=== PATIENT | female | born 1930 | race Caucasian/White ===

== ENCOUNTER 2019-03-06 11:08 | Inpatient (IN) | payer MEDICARE ==
[~2019-03-06] VITALS: Ht 162.6 cm; Wt 64.0 kg
[2019-03-06] MEDS ORDERED: IV NORMAL SALINE 1000ML BAG 1,000 ML IV SCH (11:26)
[2019-03-06] MEDS ORDERED: IPRATRPIUM/ALBUTEROL 0.5/2.5MG 3 ML NEBU. NEB ONE (11:30)
--- NOTE | 2019-03-06 11:44 | PHYS DOC ---
Past Medical History Past Medical History: GERD, High Cholesterol, Hypertension Additional Past Medical Histor: THYROID DZ Additional Past Surgical Histo: CATARACTS BILATERAL EYES - PERSISTEN DOUBLE VISION AFTER SX Alcohol Use: None Drug Use: None Adult General Chief Complaint Chief Complaint: SYNCOPE HPI HPI Patient is a 88 year old female who brought in by EMS with complaining of syncopal episode. Patient states she was sitting on the breakfast table and had a syncopal episode without loss of consciousness. Patient states she had loss of consciousness for a few seconds without seizure activity or fall. Patient denies chest pain, focal neuro deficit, headache before and after her syncope. Patient denies history of syncope, recent dehydration, urinary symptoms, diarrhea and constipation. Patient states she has had productive cough and shortness of breath for the last 3 days with subjective fever that gradually getting worse. Review of Systems Review of Systems Constitutional: Reports subjective fever Eyes: Denies change in visual acuity, redness, or eye pain [] HENT: Denies nasal congestion or sore throat [] Respiratory: Reports cough and shortness of breath Cardiovascular: No additional information not addressed in HPI [] GI: Denies abdominal pain, nausea, vomiting, bloody stools or diarrhea [] : Denies dysuria or hematuria [] Musculoskeletal: Denies back pain or joint pain [] Integument: Denies rash or skin lesions [] Neurologic: Denies headache, focal weakness or sensory changes [] Endocrine: Denies polyuria or polydipsia [] All other systems were reviewed and found to be within normal limits, except as documented in this note. Current Medications Current Medications Current Medications Medications (Trade) Dose Ordered Sig/Bhaskar Start Time Stop Time Status Last Admin Dose Admin Albuterol/ Ipratropium (Duoneb) 3 ml 1X ONCE 03/06/19 11:30 03/06/19 11:31 DC 03/06/19 11:51 3 ML Sodium Chloride 1,000 ml @ 1,000 mls/hr Q1H 03/06/19 11:26 03/06/19 12:25 DC 03/06/19 11:21 1,000 MLS/HR Allergies Allergies Allergies Coded Allergies Type Severity Reaction Last Updated Verified Sulfa (Sulfonamide Antibiotics) Allergy Unknown 03/06/19 Yes Physical Exam Physical Exam Constitutional: Well developed, well nourished, mild distress, non-toxic appearance. [] HENT: Normocephalic, atraumatic. Eyes: PERRLA, EOMI, conjunctiva normal, no discharge. [] Neck: Normal range of motion, no tenderness, supple, no stridor. [] Cardiovascular:Heart rate regular rhythm, no murmur [] Lungs & Thorax: Bilateral breath sounds clear to auscultation [] Abdomen: Bowel sounds normal, soft, no tenderness, no masses, no pulsatile masses. [] Skin: Warm, dry, no erythema, no rash. [] Back: No tenderness, no CVA tenderness. [] Extremities: No tenderness, no cyanosis, no clubbing, ROM intact, no edema. [] Neurologic: Alert and oriented X 3, normal motor function, normal sensory function, no focal deficits noted. [] Psychologic: Affect normal, judgement normal, mood normal. [] Current Patient Data Vital Signs Vital Signs Date Time Temp Pulse Resp B/P (MAP) Pulse Ox O2 Delivery O2 Flow Rate FiO2 03/06/19 11:51 93 Room Air 03/06/19 11:21 97.9 97 18 96/54 (68) 97.9 Lab Values Laboratory Tests Test 03/06/19 11:29 03/06/19 11:55 White Blood Count 7.4 x10^3/uL (4.0-11.0) Red Blood Count 4.41 x10^6/uL (3.50-5.40) Hemoglobin 13.3 g/dL (12.0-15.5) Hematocrit 39.2 % (36.0-47.0) Mean Corpuscular Volume 89 fL (79-100) Mean Corpuscular Hemoglobin 30 pg (25-35) Mean Corpuscular Hemoglobin Concent 34 g/dL (31-37) Red Cell Distribution Width 14.1 % (11.5-14.5) Platelet Count 180 x10^3/uL (140-400) Neutrophils (%) (Auto) 77 % (31-73) H Lymphocytes (%) (Auto) 12 % (24-48) L Monocytes (%) (Auto) 10 % (0-9) H Eosinophils (%) (Auto) 1 % (0-3) Basophils (%) (Auto) 0 % (0-3) Neutrophils # (Auto) 5.7 x10^3uL (1.8-7.7) Lymphocytes # (Auto) 0.9 x10^3/uL (1.0-4.8) L Monocytes # (Auto) 0.7 x10^3/uL (0.0-1.1) Eosinophils # (Auto) 0.1 x10^3/uL (0.0-0.7) Basophils # (Auto) 0.0 x10^3/uL (0.0-0.2) Sodium Level 136 mmol/L (136-145) Potassium Level 3.6 mmol/L (3.5-5.1) Chloride Level 98 mmol/L (98-107) Carbon Dioxide Level 24 mmol/L (21-32) Anion Gap 14 (6-14) Blood Urea Nitrogen 22 mg/dL (7-20) H Creatinine 0.9 mg/dL (0.6-1.0) Estimated GFR (Cockcroft-Gault) 59.2 BUN/Creatinine Ratio 24 (6-20) H Glucose Level 172 mg/dL (70-99) H Lactic Acid Level 2.3 mmol/L (0.4-2.0) H Calcium Level 8.8 mg/dL (8.5-10.1) Magnesium Level 1.8 mg/dL (1.8-2.4) Total Bilirubin 0.7 mg/dL (0.2-1.0) Aspartate Amino Transferase (AST) 28 U/L (15-37) Alanine Aminotransferase (ALT) 23 U/L (14-59) Alkaline Phosphatase 59 U/L (46-116) Creatine Kinase 477 U/L (26-192) H Troponin I Quantitative < 0.017 ng/mL (0.000-0.055) CB-Lcc-L-Type Natriuretic Peptide 1070 pg/mL (0-449) H Total Protein 6.4 g/dL (6.4-8.2) Albumin 3.3 g/dL (3.4-5.0) L Albumin/Globulin Ratio 1.1 (1.0-1.7) Urine Collection Type Unknown Urine Color Yellow Urine Clarity Clear Urine pH 5.5 Urine Specific [place] 1.015 Urine Protein Negative mg/dL (NEG-TRACE) Urine Glucose (UA) Negative mg/dL (NEG) Urine Ketones (Stick) Negative mg/dL (NEG) Urine Blood Small (NEG) Urine Nitrite Negative (NEG) Urine Bilirubin Negative (NEG) Urine Urobilinogen Dipstick 1.0 mg/dL (0.2 mg/dL) Urine Leukocyte Esterase Small (NEG) Urine RBC 6-10 /HPF (0-2) Urine WBC 1-4 /HPF (0-4) Urine Squamous Epithelial Cells Mod /LPF Urine Bacteria Few /HPF (0-FEW) Urine Hyaline Casts Many /HPF Urine Mucus Mod /LPF Laboratory Tests 03/06/19 11:29 Laboratory Tests 03/06/19 11:29 EKG EKG EKG interpreted by me. EKG at 1118 showed normal sinus rhythm at rate of 94, low voltage QRS, normal MI and QT interval, no acute ST and T-wave abnormalities. Radiology/Procedures Radiology/Procedures [facility] [address] [place] [address] IMAGING REPORT Signed PATIENT: ERROL UNDERWOOD ACCOUNT: [id number] : 1930 LOCATION: ER AGE: 88 SEX: F EXAM STATUS: REG ER ORD. PHYSICIAN: RUBÉN WALSH MD REASON: syncope PROCEDURE: CT HEAD WO CONTRAST CT HEAD WO CONTRAST History: Syncope Comparison: None. Technique: Noncontrast CT imaging was performed of the head. Exposure: One or more of the following individualized dose reduction techniques were utilized for this examination: 1. Automated exposure control 2. Adjustment of the mA and/or kV according to patient size 3. Use of iterative reconstruction technique. Findings: No acute extra-axial or parenchymal hemorrhage is identified. There is no significant intra-axial mass effect, midline shift, or extra-axial fluid collection. The burnett-white differentiation of the major vascular territories is preserved. There is some scattered ill-defined low-density of the supratentorial parenchyma bilaterally greatest of the parietal lobes. 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 The ventricles, sulci, and cisterns are within normal limits in size and configuration. The mastoid air cells and the visualized paranasal sinuses are aerated. No acute calvarial abnormality is identified. There is atherosclerotic calcification carotid siphons bilaterally. Impression: 1. There is no evidence of acute intracranial hemorrhage. 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 If there is suspicion for acute or evolving ischemia, CT or MRI follow-up could be beneficial. Electronically signed by: Solange Hill MD (03/06/2019 1:04 PM) [id number] DICTATED and SIGNED BY: SOLANGE HILL MD DATE: 03/06/19 1304 [facility] [address] [place] [address] IMAGING REPORT Signed PATIENT: ERROL UNDERWOOD ACCOUNT: [id number] : 1930 LOCATION: ER AGE: 88 SEX: F EXAM STATUS: PRE ER ORD. PHYSICIAN: RUBÉN WALSH MD REASON: syncope. IN RESTROOM@11:34 PROCEDURE: PORTABLE CHEST 1V Portable chest, 03/06/2019: HISTORY: Syncope No previous chest radiographs are available at this time for comparison purposes. The patient is rotated to the right. The heart size is normal. There is a retrocardiac mass containing gas compatible with a hiatal hernia. The pulmonary vascularity is normal. There is minimal linear scarring or atelectasis in the left base. No pulmonary consolidation is seen. There is no evidence of pleural fluid. IMPRESSION: 1. Probable moderate sized hiatal hernia. 2. Minimal left basilar linear scarring or atelectasis.. Electronically signed by: Mick Ribera MD (03/06/2019 12:19 PM) [facility] DICTATED and SIGNED BY: MICK RIBERA MD DATE: 03/06/19 1219 Course & Med Decision Making Course & Med Decision Making Pertinent Labs and Imaging studies reviewed. (See chart for details) Evaluation of patient in ER showed 88-year-old female patient brought in by EMS because of syncope. Patient had blood pressure of 80s at the scene that increased to 90s at arrival to ER after 300 ml IV fluids given by EMS. Patient had elevation of lactic acid without leukocytosis. Chest x-ray did not show infiltration. Plan to admit patient with diagnosis of syncope and bronchitis and sepsis.Patient requiring admission for further evaluation and treatment. Discussed with Dr. Aguero who is in agreement with admission. Discussed findings and plan with patient and family, who acknowledge understanding and agreement. Dragon Disclaimer Dragon Disclaimer This electronic medical record was generated, in whole or in part, using a voice recognition dictation system. Departure Departure Impression: Primary Impression: Sepsis Additional Impressions: Syncope Acute bronchitis Dehydration Hiatal hernia Disposition: 09 ADMITTED INPATIENT (at 1415) Admitting Physician: ALOK (Dr. Aguero accepted admission at 1415) Condition: IMPROVED Problem Qualifiers Primary Impression: Sepsis Sepsis type: sepsis due to unspecified organism Qualified Codes: A41.9 - Sepsis, unspecified organism Additional Impressions: Syncope Syncope type: unspecified Qualified Codes: R55 - Syncope and collapse Acute bronchitis Bronchitis organism: unspecified organism Qualified Codes: J20.9 - Acute bronchitis, unspecified RUBÉN WALSH MD March 06, 2019 11:44
[2019-03-06 11:49] LABS: BASO % 0 % (0-3); EOS # 0.1 x10^3/uL (0.0-0.7); EOS % 1 % (0-3); HEMATOCRIT 39.2 % (36.0-47.0); HEMOGLOBIN 13.3 g/dL (12.0-15.5); LYMPH # 0.9 x10^3/uL (1.0-4.8); LYMPH % 12 % (24-48); MEAN CORPUSCULAR HEMOGLOBIN 30 pg (25-35); MEAN CORPUSCULAR HGB CONC 34 g/dL (31-37); MEAN CORPUSCULAR VOLUME 89 fL (79-100); MONO # 0.7 x10^3/uL (0.0-1.1); MONO % 10 % (0-9); NEUT # 5.7 x10^3uL (1.8-7.7); NEUT % 77 % (31-73); PLATELET COUNT 180 x10^3/uL (140-400); RED BLOOD COUNT 4.41 x10^6/uL (3.50-5.40); RED CELL DISTRIBUTION WIDTH 14.1 % (11.5-14.5); WHITE BLOOD COUNT 7.4 x10^3/uL (4.0-11.0)
[2019-03-06 12:03] LABS: BILIRUBIN,URINE NEGATIVE (NEG); CLARITY,URINE CLEAR; COLOR,URINE YELLOW; NITRITE,URINE NEGATIVE (NEG); PH,URINE 5.5; PROTEIN,URINE NEGATIVE (NEG-TRACE)
[2019-03-06 12:21] LABS: HYALINE CASTS, URINE MANY /HPF; SQUAMOUS EPITHELIAL CELL,UR MOD /LPF
[2019-03-06 12:22] LABS: BACTERIA,URINE FEW /HPF (0-FEW)
--- NOTE | 2019-03-06 12:22 | RAD ---
Portable chest, 03/06/2019: HISTORY: Syncope No previous chest radiographs are available at this time for comparison purposes. The patient is rotated to the right. The heart size is normal. There is a retrocardiac mass containing gas compatible with a hiatal hernia. The pulmonary vascularity is normal. There is minimal linear scarring or atelectasis in the left base. No pulmonary consolidation is seen. There is no evidence of pleural fluid. IMPRESSION: 1. Probable moderate sized hiatal hernia. 2. Minimal left basilar linear scarring or atelectasis.. Electronically signed by: Mick Ribera MD (03/06/2019 12:19 PM) [facility]
--- NOTE | 2019-03-06 13:07 | RAD ---
CT HEAD WO CONTRAST History: Syncope Comparison: None. Technique: Noncontrast CT imaging was performed of the head. Exposure: One or more of the following individualized dose reduction techniques were utilized for this examination: 1. Automated exposure control 2. Adjustment of the mA and/or kV according to patient size 3. Use of iterative reconstruction technique. Findings: No acute extra-axial or parenchymal hemorrhage is identified. There is no significant intra-axial mass effect, midline shift, or extra-axial fluid collection. The burnett-white differentiation of the major vascular territories is preserved. There is some scattered ill-defined low-density of the supratentorial parenchyma bilaterally greatest of the parietal lobes. 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 The ventricles, sulci, and cisterns are within normal limits in size and configuration. The mastoid air cells and the visualized paranasal sinuses are aerated. No acute calvarial abnormality is identified. There is atherosclerotic calcification carotid siphons bilaterally. Impression: 1. There is no evidence of acute intracranial hemorrhage. 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 If there is suspicion for acute or evolving ischemia, CT or MRI follow-up could be beneficial. Electronically signed by: Gagan De Souza MD (03/06/2019 1:04 PM) [id number]
[2019-03-06] MEDS ORDERED: AZITHRMYCN 500MG IVPB FOR OMNI 250 ML IV ONE (13:30)
[2019-03-06] MEDS ORDERED: cefTRIAXone IV Push 1 GM VIAL. IVP ONE (13:30)
[2019-03-06 13:51] LABS: CALCIUM 8.8 mg/dL (8.5-10.1); CREATININE 0.9 mg/dL (0.6-1.0); GFR 59.2; POTASSIUM 3.6 mmol/L (3.5-5.1)
[2019-03-06 13:57] LABS: ALBUMIN 3.3 g/dL (3.4-5.0); ALBUMIN/GLOBULIN RATIO 1.1 (1.0-1.7); MAGNESIUM 1.8 mg/dL (1.8-2.4); TOTAL BILIRUBIN 0.7 mg/dL (0.2-1.0); TOTAL PROTEIN 6.4 g/dL (6.4-8.2)
[2019-03-06] MEDS ORDERED: LORazepam 0.5 MG TABLET PO PRN (14:30)
[2019-03-06] MEDS ORDERED: ACETAMINOPHEN 325 MG TABLET. PO PRN (14:30)
[2019-03-06] MEDS ORDERED: ONDANSETRON PF 4 MG/2 ML VIAL. IV PRN (14:30)
[2019-03-06] MEDS ORDERED: guaiFENesin ORAL 200 MG/10 ML LIQUID. PO PRN (14:30)
[2019-03-06] MEDS ORDERED: DOCUSATE SODIUM 100 MG CAPSULE. PO PRN (14:30)
[2019-03-06] MEDS ORDERED: ALBUTEROL SULFATE 2.5 MG/3 ML NEBU. NEB PRN (14:30)
--- NOTE | 2019-03-06 14:54 | EKG ---
[facility] [address] [place] [address] Test Date: 2019-03-06 Test Time: 11:18:08 Pat Name: ERROL UNDERWOOD Department: Room: Gender: F Customer Experience Retail Clerk: : 1930 Requested By: RUBÉN WALSH Order Number: [id number] Reading MD: Measurements Intervals [place] Rate: 94 P: 33 AL: 146 QRS: 40 QRSD: 72 T: -27 QT: 356 QTc: 451 Interpretive Statements SINUS RHYTHM LOW LIMB LEAD VOLTAGE T ABNORMALITY IN INFERIOR LEADS ABNORMAL ECG RI6.01 Unconfirmed report No previous ECG available for comparison
--- NOTE | 2019-03-06 15:34 | PDOC1 ---
History and Physical Date of Admission Date of Admission 03/06/2019 Identification/Chief Complaint Chief Complaint I passed out Problems: (1) Syncope (2) Atelectasis Source Source: Caregiver, Chart review, Patient History of Present Illness History of Present Illness Patient is a an 88-year-old female who was in her usual state of health sitting on the table today when she had a coughing spell and subsequently the patient relates losing consciousness. Patient or lives at home with her and recently has not been "feeling well". When asked to elaborate more patient has generalized malaise congestion and he'll she also refers a sensation of being quite cool he will when she knows that the outdoors are quite warm. The patient has not quantified her temperature at home she denies fever or chills Patient's was prescribed antibiotics last week since he had similar symptoms. The patient nevertheless has a long-standing history of GERD and she takes a PPI on a regular basis. Despite his therapy the patient still complains of epigastric burning sensation. The patient denies changes in the swallowing process. The patient denies black tarry stools. At the time of my evaluation the patient is laying on the stretcher in no acute distress. She denies orthopnea no paroxysmal nocturnal dyspnea was reported no orthostatic blood pressure has been recorded at the time my evaluation. Plan of care has been explained detail to the patient and the daughter who is at bedside. Patient denies chest pain palpitations no slurred speech no dysphagia or odynophagia no constipation or abdominal pain was reported no edema in the peripheral extremities. Will be admitted for further evaluation of her syncopal episode. I have discussed results of her laboratory data and her x-ray ER hsitory Patient is a 88 year old female who brought in by EMS with complaining of sy ncopal episode. Patient states she was sitting on the breakfast table and had a syncopal episode without loss of consciousness. Patient states she had loss of consciousness for a few seconds without seizure activity or fall. Patient denies chest pain, focal neuro deficit, headache before and after her syncope. Patient denies history of syncope, recent dehydration, urinary symptoms, diarrhea and constipation. Patient states she has had productive cough and shortness of breath for the last 3 days with subjective fever that gradually getting worse. Past Medical History Cardiovascular: HTN Current Problem List Problem List Problems Medical Problems: (1) Acute bronchitis Status: Acute (2) Dehydration Status: Acute (3) Hiatal hernia Status: Acute (4) Sepsis Status: Acute (5) Syncope Status: Acute Current Medications Current Medications Current Medications Medications (Trade) Dose Ordered Sig/Bhaskar Start Time Stop Time Status Last Admin Dose Admin Acetaminophen (Tylenol) 650 mg PRN Q4HRS PRN 03/06/19 14:30 Albuterol Sulfate (Ventolin Neb Soln) 2.5 mg PRN Q4HRS PRN 03/06/19 14:30 Albuterol/ Ipratropium (Duoneb) 3 ml 1X ONCE 03/06/19 11:30 03/06/19 11:31 DC 03/06/19 11:51 3 ML Azithromycin 250 ml @ 250 mls/hr 1X ONCE 03/06/19 13:30 03/06/19 14:29 DC 03/06/19 13:35 250 MLS/HR Ceftriaxone Sodium (Rocephin) 1 gm 1X ONCE 03/06/19 13:30 03/06/19 13:31 DC 03/06/19 13:35 1 GM Docusate Sodium (Colace) 100 mg PRN BID PRN 03/06/19 14:30 Guaifenesin (Robitussin) 200 mg PRN Q4HRS PRN 03/06/19 14:30 Lorazepam (Ativan) 0.5 mg PRN Q4HRS PRN 03/06/19 14:30 Ondansetron HCl (Zofran) 4 mg PRN Q4HRS PRN 03/06/19 14:30 Sodium Chloride 1,000 ml @ 125 mls/hr Q8H 03/06/19 14:24 03/07/19 14:23 Zolpidem Tartrate (Ambien) 5 mg PRN QHS PRN 03/06/19 14:30 Allergies Allergies Allergies Coded Allergies Type Severity Reaction Last Updated Verified Sulfa (Sulfonamide Antibiotics) Allergy Unknown 03/06/19 Yes ROS Review of System CONSTITUTIONAL: No fever or chills EYES: No recent changes SKIN: No rash or itching CARDIOVASCULAR: No chest pain, syncope, palpitations, or edema RESPIRATORY: No SOB or cough GASTROINTESTINAL: No nausea, vomiting or abdominal pain NEUROLOGICAL: No headaches or weakness ENDOCRINE: No cold or heat intolerance GENITOURINARY: No urgency or frequency of urination MUSCULOSKELETAL: No back pain or joint pain LYMPHATICS: No enlarged lymph nodes PSYCHIATRIC: No anxiety or depression Physical Exam Physical Exam GEN.: No apparent distress. Alert and oriented. HEENT: Head is normocephalic, atraumatic NECK: Supple. LUNGS: Clear to auscultation. HEART: RRR, S1, S2 present. Peripheral pulses intact ABDOMEN: Soft, nontender. Positive bowel sounds. EXTREMITIES: Without any cyanosis. NEUROLOGIC: Normal speech, normal tone PSYCHIATRIC: Normal affect, normal mood. SKIN: No ulcerations Vitals Vitals Vital Signs Date Time Temp Pulse Resp B/P (MAP) Pulse Ox O2 Delivery O2 Flow Rate FiO2 03/06/19 11:51 93 Room Air 03/06/19 11:21 97.9 97 18 96/54 (68) 97.9 Labs Labs Laboratory Tests Test 03/06/19 11:29 03/06/19 11:55 White Blood Count 7.4 x10^3/uL (4.0-11.0) Red Blood Count 4.41 x10^6/uL (3.50-5.40) Hemoglobin 13.3 g/dL (12.0-15.5) Hematocrit 39.2 % (36.0-47.0) Mean Corpuscular Volume 89 fL (79-100) Mean Corpuscular Hemoglobin 30 pg (25-35) Mean Corpuscular Hemoglobin Concent 34 g/dL (31-37) Red Cell Distribution Width 14.1 % (11.5-14.5) Platelet Count 180 x10^3/uL (140-400) Neutrophils (%) (Auto) 77 % (31-73) Lymphocytes (%) (Auto) 12 % (24-48) Monocytes (%) (Auto) 10 % (0-9) Eosinophils (%) (Auto) 1 % (0-3) Basophils (%) (Auto) 0 % (0-3) Neutrophils # (Auto) 5.7 x10^3uL (1.8-7.7) Lymphocytes # (Auto) 0.9 x10^3/uL (1.0-4.8) Monocytes # (Auto) 0.7 x10^3/uL (0.0-1.1) Eosinophils # (Auto) 0.1 x10^3/uL (0.0-0.7) Basophils # (Auto) 0.0 x10^3/uL (0.0-0.2) Sodium Level 136 mmol/L (136-145) Potassium Level 3.6 mmol/L (3.5-5.1) Chloride Level 98 mmol/L (98-107) Carbon Dioxide Level 24 mmol/L (21-32) Anion Gap 14 (6-14) Blood Urea Nitrogen 22 mg/dL (7-20) Creatinine 0.9 mg/dL (0.6-1.0) Estimated GFR (Cockcroft-Gault) 59.2 BUN/Creatinine Ratio 24 (6-20) Glucose Level 172 mg/dL (70-99) Lactic Acid Level 2.3 mmol/L (0.4-2.0) Calcium Level 8.8 mg/dL (8.5-10.1) Magnesium Level 1.8 mg/dL (1.8-2.4) Total Bilirubin 0.7 mg/dL (0.2-1.0) Aspartate Amino Transf (AST/SGOT) 28 U/L (15-37) Alanine Aminotransferase (ALT/SGPT) 23 U/L (14-59) Alkaline Phosphatase 59 U/L (46-116) Creatine Kinase 477 U/L (26-192) Troponin I Quantitative < 0.017 ng/mL (0.000-0.055) GB-Ylh-N-Type Natriuretic Peptide 1070 pg/mL (0-449) Total Protein 6.4 g/dL (6.4-8.2) Albumin 3.3 g/dL (3.4-5.0) Albumin/Globulin Ratio 1.1 (1.0-1.7) Urine Collection Type Unknown Urine Color Yellow Urine Clarity Clear Urine pH 5.5 Urine Specific [place] 1.015 Urine Protein Negative mg/dL (NEG-TRACE) Urine Glucose (UA) Negative mg/dL (NEG) Urine Ketones (Stick) Negative mg/dL (NEG) Urine Blood Small (NEG) Urine Nitrite Negative (NEG) Urine Bilirubin Negative (NEG) Urine Urobilinogen Dipstick 1.0 mg/dL (0.2 mg/dL) Urine Leukocyte Esterase Small (NEG) Urine RBC 6-10 /HPF (0-2) Urine WBC 1-4 /HPF (0-4) Urine Squamous Epithelial Cells Mod /LPF Urine Bacteria Few /HPF (0-FEW) Urine Hyaline Casts Many /HPF Urine Mucus Mod /LPF Laboratory Tests Test 03/06/19 11:29 03/06/19 11:55 White Blood Count 7.4 x10^3/uL (4.0-11.0) Red Blood Count 4.41 x10^6/uL (3.50-5.40) Hemoglobin 13.3 g/dL (12.0-15.5) Hematocrit 39.2 % (36.0-47.0) Mean Corpuscular Volume 89 fL (79-100) Mean Corpuscular Hemoglobin 30 pg (25-35) Mean Corpuscular Hemoglobin Concent 34 g/dL (31-37) Red Cell Distribution Width 14.1 % (11.5-14.5) Platelet Count 180 x10^3/uL (140-400) Neutrophils (%) (Auto) 77 % (31-73) Lymphocytes (%) (Auto) 12 % (24-48) Monocytes (%) (Auto) 10 % (0-9) Eosinophils (%) (Auto) 1 % (0-3) Basophils (%) (Auto) 0 % (0-3) Neutrophils # (Auto) 5.7 x10^3uL (1.8-7.7) Lymphocytes # (Auto) 0.9 x10^3/uL (1.0-4.8) Monocytes # (Auto) 0.7 x10^3/uL (0.0-1.1) Eosinophils # (Auto) 0.1 x10^3/uL (0.0-0.7) Basophils # (Auto) 0.0 x10^3/uL (0.0-0.2) Sodium Level 136 mmol/L (136-145) Potassium Level 3.6 mmol/L (3.5-5.1) Chloride Level 98 mmol/L (98-107) Carbon Dioxide Level 24 mmol/L (21-32) Anion Gap 14 (6-14) Blood Urea Nitrogen 22 mg/dL (7-20) Creatinine 0.9 mg/dL (0.6-1.0) Estimated GFR (Cockcroft-Gault) 59.2 BUN/Creatinine Ratio 24 (6-20) Glucose Level 172 mg/dL (70-99) Lactic Acid Level 2.3 mmol/L (0.4-2.0) Calcium Level 8.8 mg/dL (8.5-10.1) Magnesium Level 1.8 mg/dL (1.8-2.4) Total Bilirubin 0.7 mg/dL (0.2-1.0) Aspartate Amino Transf (AST/SGOT) 28 U/L (15-37) Alanine Aminotransferase (ALT/SGPT) 23 U/L (14-59) Alkaline Phosphatase 59 U/L (46-116) Creatine Kinase 477 U/L (26-192) Troponin I Quantitative < 0.017 ng/mL (0.000-0.055) NY-Yjm-V-Type Natriuretic Peptide 1070 pg/mL (0-449) Total Protein 6.4 g/dL (6.4-8.2) Albumin 3.3 g/dL (3.4-5.0) Albumin/Globulin Ratio 1.1 (1.0-1.7) Urine Collection Type Unknown Urine Color Yellow Urine Clarity Clear Urine pH 5.5 Urine Specific [place] 1.015 Urine Protein Negative mg/dL (NEG-TRACE) Urine Glucose (UA) Negative mg/dL (NEG) Urine Ketones (Stick) Negative mg/dL (NEG) Urine Blood Small (NEG) Urine Nitrite Negative (NEG) Urine Bilirubin Negative (NEG) Urine Urobilinogen Dipstick 1.0 mg/dL (0.2 mg/dL) Urine Leukocyte Esterase Small (NEG) Urine RBC 6-10 /HPF (0-2) Urine WBC 1-4 /HPF (0-4) Urine Squamous Epithelial Cells Mod /LPF Urine Bacteria Few /HPF (0-FEW) Urine Hyaline Casts Many /HPF Urine Mucus Mod /LPF VTE Prophylaxis Ordered VTE Prophylaxis Devices: Yes VTE Pharmacological Prophylaxi: No Assessment/Plan Assessment/Plan Syncopal episode, etiology undetermined may have been vasovagal vs orthostasis given history of poor oral intake over the last 48 hours History of GERD chronic cough which well may be a consequence of the above seasonal allergies advanced age moderate dehydration Elevated pro BNP Plan: fluid resuscitation check orthostatics consult cardiology resume home meds once available for review will do protonix for GERD further recommendations based on clincal course dvt prophylaxis: scd and teds Problem Qualifiers (1) Syncope: Syncope type: unspecified Qualified Codes: R55 - Syncope and collapse FALLON CLEMENTS MD March 06, 2019 15:34
[2019-03-06] MEDS: IV NORMAL SALINE 1000ML BAG 1,000 ML IV SCH ×2 (16:47→20:59)
[2019-03-06 19:10] VITALS: BP 114/63
[2019-03-06] MEDS: ZOLPIDEM 5 MG TABLET. PO PRN (23:10)
[2019-03-06 23:47] VITALS: BP 113/48
[2019-03-07 03:45] VITALS: BP 105/48
[2019-03-07] MEDS: IV NORMAL SALINE 1000ML BAG 1,000 ML IV SCH (05:51)
[2019-03-07 07:00] VITALS: BP 143/47
--- NOTE | 2019-03-07 08:30 | NUR ---
Pt stated she would have her bring her medications because she cannot remember the dosages. Patient also stated "I didn't know if we were allowed to do that." is going out with family this morning and should be able to bring them up this afternoon. Will continue to monitor. Addendum: 03/07/19 at 1052 by ROD JAMES RN Spoke with the pharmacist at [facility] in [place]. They are faxing over an updated medication list. Will continue to monitor.
--- NOTE | 2019-03-07 09:09 | PDOC ---
[employer] PROGRESS NOTE Chief Complaint Chief Complaint Syncopal episode, etiology undetermined may have been vasovagal vs orthostasis given history of poor oral intake over the last 48 hours History of GERD chronic cough which well may be a consequence of the above seasonal allergies advanced age moderate dehydration Elevated pro BNP History of Present Illness History of Present Illness Pt seen andexamined DW RN Pt seems to be coughing and aspirating at the bedside Vitals Vitals Vital Signs Date Time Temp Pulse Resp B/P (MAP) Pulse Ox O2 Delivery O2 Flow Rate FiO2 03/07/19 07:00 97.7 71 16 143/47 (79) 92 Room Air 97.7 Physical Exam General: Alert, Oriented X3, Cooperative Heart: Regular rate, Normal S1 Lungs: Other (R wheeze) Abdomen: Normal bowel sounds, Soft Extremities: No clubbing, No cyanosis Skin: No rashes, No breakdown Labs Labs: Laboratory Tests Test 03/06/19 11:29 03/06/19 11:55 03/06/19 18:30 White Blood Count 7.4 x10^3/uL (4.0-11.0) Red Blood Count 4.41 x10^6/uL (3.50-5.40) Hemoglobin 13.3 g/dL (12.0-15.5) Hematocrit 39.2 % (36.0-47.0) Mean Corpuscular Volume 89 fL (79-100) Mean Corpuscular Hemoglobin 30 pg (25-35) Mean Corpuscular Hemoglobin Concent 34 g/dL (31-37) Red Cell Distribution Width 14.1 % (11.5-14.5) Platelet Count 180 x10^3/uL (140-400) Neutrophils (%) (Auto) 77 % (31-73) Lymphocytes (%) (Auto) 12 % (24-48) Monocytes (%) (Auto) 10 % (0-9) Eosinophils (%) (Auto) 1 % (0-3) Basophils (%) (Auto) 0 % (0-3) Neutrophils # (Auto) 5.7 x10^3uL (1.8-7.7) Lymphocytes # (Auto) 0.9 x10^3/uL (1.0-4.8) Monocytes # (Auto) 0.7 x10^3/uL (0.0-1.1) Eosinophils # (Auto) 0.1 x10^3/uL (0.0-0.7) Basophils # (Auto) 0.0 x10^3/uL (0.0-0.2) Sodium Level 136 mmol/L (136-145) Potassium Level 3.6 mmol/L (3.5-5.1) Chloride Level 98 mmol/L (98-107) Carbon Dioxide Level 24 mmol/L (21-32) Anion Gap 14 (6-14) Blood Urea Nitrogen 22 mg/dL (7-20) Creatinine 0.9 mg/dL (0.6-1.0) Estimated GFR (Cockcroft-Gault) 59.2 BUN/Creatinine Ratio 24 (6-20) Glucose Level 172 mg/dL (70-99) Lactic Acid Level 2.3 mmol/L (0.4-2.0) 1.3 mmol/L (0.4-2.0) Calcium Level 8.8 mg/dL (8.5-10.1) Magnesium Level 1.8 mg/dL (1.8-2.4) Total Bilirubin 0.7 mg/dL (0.2-1.0) Aspartate Amino Transf (AST/SGOT) 28 U/L (15-37) Alanine Aminotransferase (ALT/SGPT) 23 U/L (14-59) Alkaline Phosphatase 59 U/L (46-116) Creatine Kinase 477 U/L (26-192) Troponin I Quantitative < 0.017 ng/mL (0.000-0.055) [id number]-Type Natriuretic Peptide 1070 pg/mL (0-449) Total Protein 6.4 g/dL (6.4-8.2) Albumin 3.3 g/dL (3.4-5.0) Albumin/Globulin Ratio 1.1 (1.0-1.7) Urine Collection Type Unknown Urine Color Yellow Urine Clarity Clear Urine pH 5.5 Urine Specific Causey 1.015 Urine Protein Negative mg/dL (NEG-TRACE) Urine Glucose (UA) Negative mg/dL (NEG) Urine Ketones (Stick) Negative mg/dL (NEG) Urine Blood Small (NEG) Urine Nitrite Negative (NEG) Urine Bilirubin Negative (NEG) Urine Urobilinogen Dipstick 1.0 mg/dL (0.2 mg/dL) Urine Leukocyte Esterase Small (NEG) Urine RBC 6-10 /HPF (0-2) Urine WBC 1-4 /HPF (0-4) Urine Squamous Epithelial Cells Mod /LPF Urine Bacteria Few /HPF (0-FEW) Urine Hyaline Casts Many /HPF Urine Mucus Mod /LPF Review of Systems Review of Systems co cough co weakness Assessment and Plan Assessmemt and Plan Problems Medical Problems: (1) Acute bronchitis Status: Acute (2) Dehydration Status: Acute (3) Hiatal hernia Status: Acute (4) Sepsis Status: ? Aspiration? Acute Syncopal episode, etiology undetermined may have been vasovagal vs orthostasis given history of poor oral intake over the last 48 hours History of GERD chronic cough which well may be a consequence of the above seasonal allergies advanced age moderate dehydration Elevated pro BNP Plan Consult Pulm PTOTST Labs Home meds Full code DVT proph Await cards (5) Syncope Status: Acute Comment Review of Relevant I have reviewed the following items jeny (where applicable) has been applied. Labs Laboratory Tests Test 03/06/19 11:29 03/06/19 11:55 03/06/19 18:30 White Blood Count 7.4 x10^3/uL (4.0-11.0) Red Blood Count 4.41 x10^6/uL (3.50-5.40) Hemoglobin 13.3 g/dL (12.0-15.5) Hematocrit 39.2 % (36.0-47.0) Mean Corpuscular Volume 89 fL (79-100) Mean Corpuscular Hemoglobin 30 pg (25-35) Mean Corpuscular Hemoglobin Concent 34 g/dL (31-37) Red Cell Distribution Width 14.1 % (11.5-14.5) Platelet Count 180 x10^3/uL (140-400) Neutrophils (%) (Auto) 77 % (31-73) Lymphocytes (%) (Auto) 12 % (24-48) Monocytes (%) (Auto) 10 % (0-9) Eosinophils (%) (Auto) 1 % (0-3) Basophils (%) (Auto) 0 % (0-3) Neutrophils # (Auto) 5.7 x10^3uL (1.8-7.7) Lymphocytes # (Auto) 0.9 x10^3/uL (1.0-4.8) Monocytes # (Auto) 0.7 x10^3/uL (0.0-1.1) Eosinophils # (Auto) 0.1 x10^3/uL (0.0-0.7) Basophils # (Auto) 0.0 x10^3/uL (0.0-0.2) Sodium Level 136 mmol/L (136-145) Potassium Level 3.6 mmol/L (3.5-5.1) Chloride Level 98 mmol/L (98-107) Carbon Dioxide Level 24 mmol/L (21-32) Anion Gap 14 (6-14) Blood Urea Nitrogen 22 mg/dL (7-20) Creatinine 0.9 mg/dL (0.6-1.0) Estimated GFR (Cockcroft-Gault) 59.2 BUN/Creatinine Ratio 24 (6-20) Glucose Level 172 mg/dL (70-99) Lactic Acid Level 2.3 mmol/L (0.4-2.0) 1.3 mmol/L (0.4-2.0) Calcium Level 8.8 mg/dL (8.5-10.1) Magnesium Level 1.8 mg/dL (1.8-2.4) Total Bilirubin 0.7 mg/dL (0.2-1.0) Aspartate Amino Transf (AST/SGOT) 28 U/L (15-37) Alanine Aminotransferase (ALT/SGPT) 23 U/L (14-59) Alkaline Phosphatase 59 U/L (46-116) Creatine Kinase 477 U/L (26-192) Troponin I Quantitative < 0.017 ng/mL (0.000-0.055) BX-Sye-F-Type Natriuretic Peptide 1070 pg/mL (0-449) Total Protein 6.4 g/dL (6.4-8.2) Albumin 3.3 g/dL (3.4-5.0) Albumin/Globulin Ratio 1.1 (1.0-1.7) Urine Collection Type Unknown Urine Color Yellow Urine Clarity Clear Urine pH 5.5 Urine Specific Causey 1.015 Urine Protein Negative mg/dL (NEG-TRACE) Urine Glucose (UA) Negative mg/dL (NEG) Urine Ketones (Stick) Negative mg/dL (NEG) Urine Blood Small (NEG) Urine Nitrite Negative (NEG) Urine Bilirubin Negative (NEG) Urine Urobilinogen Dipstick 1.0 mg/dL (0.2 mg/dL) Urine Leukocyte Esterase Small (NEG) Urine RBC 6-10 /HPF (0-2) Urine WBC 1-4 /HPF (0-4) Urine Squamous Epithelial Cells Mod /LPF Urine Bacteria Few /HPF (0-FEW) Urine Hyaline Casts Many /HPF Urine Mucus Mod /LPF Laboratory Tests Test 03/06/19 11:29 03/06/19 11:55 03/06/19 18:30 White Blood Count 7.4 x10^3/uL (4.0-11.0) Red Blood Count 4.41 x10^6/uL (3.50-5.40) Hemoglobin 13.3 g/dL (12.0-15.5) Hematocrit 39.2 % (36.0-47.0) Mean Corpuscular Volume 89 fL (79-100) Mean Corpuscular Hemoglobin 30 pg (25-35) Mean Corpuscular Hemoglobin Concent 34 g/dL (31-37) Red Cell Distribution Width 14.1 % (11.5-14.5) Platelet Count 180 x10^3/uL (140-400) Neutrophils (%) (Auto) 77 % (31-73) Lymphocytes (%) (Auto) 12 % (24-48) Monocytes (%) (Auto) 10 % (0-9) Eosinophils (%) (Auto) 1 % (0-3) Basophils (%) (Auto) 0 % (0-3) Neutrophils # (Auto) 5.7 x10^3uL (1.8-7.7) Lymphocytes # (Auto) 0.9 x10^3/uL (1.0-4.8) Monocytes # (Auto) 0.7 x10^3/uL (0.0-1.1) Eosinophils # (Auto) 0.1 x10^3/uL (0.0-0.7) Basophils # (Auto) 0.0 x10^3/uL (0.0-0.2) Sodium Level 136 mmol/L (136-145) Potassium Level 3.6 mmol/L (3.5-5.1) Chloride Level 98 mmol/L (98-107) Carbon Dioxide Level 24 mmol/L (21-32) Anion Gap 14 (6-14) Blood Urea Nitrogen 22 mg/dL (7-20) Creatinine 0.9 mg/dL (0.6-1.0) Estimated GFR (Cockcroft-Gault) 59.2 BUN/Creatinine Ratio 24 (6-20) Glucose Level 172 mg/dL (70-99) Lactic Acid Level 2.3 mmol/L (0.4-2.0) 1.3 mmol/L (0.4-2.0) Calcium Level 8.8 mg/dL (8.5-10.1) Magnesium Level 1.8 mg/dL (1.8-2.4) Total Bilirubin 0.7 mg/dL (0.2-1.0) Aspartate Amino Transf (AST/SGOT) 28 U/L (15-37) Alanine Aminotransferase (ALT/SGPT) 23 U/L (14-59) Alkaline Phosphatase 59 U/L (46-116) Creatine Kinase 477 U/L (26-192) Troponin I Quantitative < 0.017 ng/mL (0.000-0.055) TQ-Xhz-K-Type Natriuretic Peptide 1070 pg/mL (0-449) Total Protein 6.4 g/dL (6.4-8.2) Albumin 3.3 g/dL (3.4-5.0) Albumin/Globulin Ratio 1.1 (1.0-1.7) Urine Collection Type Unknown Urine Color Yellow Urine Clarity Clear Urine pH 5.5 Urine Specific Causey 1.015 Urine Protein Negative mg/dL (NEG-TRACE) Urine Glucose (UA) Negative mg/dL (NEG) Urine Ketones (Stick) Negative mg/dL (NEG) Urine Blood Small (NEG) Urine Nitrite Negative (NEG) Urine Bilirubin Negative (NEG) Urine Urobilinogen Dipstick 1.0 mg/dL (0.2 mg/dL) Urine Leukocyte Esterase Small (NEG) Urine RBC 6-10 /HPF (0-2) Urine WBC 1-4 /HPF (0-4) Urine Squamous Epithelial Cells Mod /LPF Urine Bacteria Few /HPF (0-FEW) Urine Hyaline Casts Many /HPF Urine Mucus Mod /LPF Medications Current Medications Sodium Chloride 1,000 ml @ 1,000 mls/hr Q1H IV Last administered on 03/06/19at 11:21; Start 03/06/19 at 11:26; Stop 03/06/19 at 12:25; Status DC Albuterol/ Ipratropium (Duoneb) 3 ml 1X ONCE NEB Last administered on 03/06/19at 11:51; Start 03/06/19 at 11:30; Stop 03/06/19 at 11:31; Status DC Ceftriaxone Sodium (Rocephin) 1 gm 1X ONCE IVP Last administered on 03/06/19at 13:35; Start 03/06/19 at 13:30; Stop 03/06/19 at 13:31; Status DC Azithromycin 250 ml @ 250 mls/hr 1X ONCE IV Last administered on 03/06/19at 13:35; Start 03/06/19 at 13:30; Stop 03/06/19 at 14:29; Status DC Ondansetron HCl (Zofran) 4 mg PRN Q4HRS PRN IV NAUSEA/VOMITING; Start 03/06/19 at 14:30 Zolpidem Tartrate (Ambien) 5 mg PRN QHS PRN PO INSOMNIA Last administered on 03/06/19at 23:10; Start 03/06/19 at 14:30 Acetaminophen (Tylenol) 650 mg PRN Q4HRS PRN PO TEMP OVER 100.4F OR MILD PAIN; Start 03/06/19 at 14:30 Docusate Sodium (Colace) 100 mg PRN BID PRN PO CONSTIPATION; Start 03/06/19 at 14:30 Albuterol Sulfate (Ventolin Neb Soln) 2.5 mg PRN Q4HRS PRN NEB SHORTNESS OF BREATH; Start 03/06/19 at 14:30 Guaifenesin (Robitussin) 200 mg PRN Q4HRS PRN PO COUGH Last administered on 03/06/19at 18:52; Start 03/06/19 at 14:30 Lorazepam (Ativan) 0.5 mg PRN Q4HRS PRN PO ANXIETY / AGITATION; Start 03/06/19 at 14:30 Sodium Chloride 1,000 ml @ 125 mls/hr Q8H IV Last administered on 03/07/19at 05:51; Start 03/06/19 at 14:24; Stop 03/07/19 at 14:23 Vitals/I & O Vital Sign - Last 24 Hours 03/06/19 03/06/19 03/06/19 03/06/19 11:21 11:51 12:30 13:30 Temp 97.9 97.9 Pulse 97 87 89 Resp 18 16 15 B/P (MAP) 96/54 (68) 110/62 (78) 111/65 (80) Pulse Ox 94 93 99 99 O2 Delivery Room Air Room Air Room Air Room Air 03/06/19 03/06/19 03/06/19 03/06/19 14:30 15:30 19:10 20:00 Temp 97.6 97.6 Pulse 90 93 Resp 15 16 B/P (MAP) 109/66 (80) 114/63 (80) Pulse Ox 98 95 O2 Delivery Room Air Room Air Room Air Room Air 03/06/19 03/07/19 03/07/19 23:47 03:45 07:00 Temp 98.4 98.4 97.7 98.4 98.4 97.7 Pulse 79 81 71 Resp 16 16 16 B/P (MAP) 113/48 (69) 105/48 (67) 143/47 (79) Pulse Ox 95 92 92 O2 Delivery Room Air Room Air Room Air Intake and Output 03/06/19 03/06/19 03/07/19 15:00 23:00 07:00 Intake Total 1000 ml 125 ml 0 ml Balance 1000 ml 125 ml 0 ml POOL OCHOA III DO Mar 07, 2019 09:09
--- NOTE | 2019-03-07 09:44 | RAD ---
Chest, PA and Lateral: Technique: PA and lateral views of the chest were obtained. History: Atelectasis. Comparison: 03/06/2019. Findings: The heart size grossly appears unremarkable. Mild bibasilar lung airspace opacities likely atelectasis or infiltrates. IMPRESSION: 1. Mild bibasilar lung airspace opacities likely atelectasis or infiltrates. Electronically signed by: Addy Cartagena MD (03/07/2019 9:42 AM) [facility]
[2019-03-07] MEDS ORDERED: LISI1TAB7 PO (10:50)
[2019-03-07] MEDS ORDERED: LEVO88TA4 PO (10:50)
[2019-03-07] MEDS ORDERED: ZOLP5TAB PO (10:50)
[2019-03-07] MEDS ORDERED: PRAV40TA2 PO (10:50)
--- NOTE | 2019-03-07 10:58 | CONS ---
DATE OF CONSULTATION: 03/07/2019 ATTENDING PHYSICIAN: Dr. Aguero. REASON FOR CONSULTATION: Pneumonia. HISTORY OF PRESENT ILLNESS: The patient is an 88-year-old female who has no history of tobacco use. The patient states that her was sick with pneumonia recently and she has also started coughing. The cough is productive of light sputum production. She had worsening coughing spell and also subsequently lost consciousness for a few seconds. The patient has generalized weakness. She is now fully awake. She said that she may have a fever at home. She does not smoke cigarettes. No weight loss. She was admitted to the hospital for possibility of pneumonia. I have reviewed the patient's chest x-ray. It shows left basilar infiltrate. There may be some minimal infiltrate in the right lower chest as well. The patient is currently not on oxygen. She was started on antibiotics. I have been asked to see her for further evaluation. No headaches at present. No nausea, no vomiting, no diarrhea. No focal weakness, but generalized weakness. No weight loss. No skin rash. No legs edema. PAST MEDICAL HISTORY: History of hypertension. PAST SURGICAL HISTORY: No recent surgery. ALLERGIES: SULFA. MEDICATIONS: Reviewed as listed in the MRAD. REVIEW OF SYSTEMS: Twelve-point system obtained. Pertinent positives discussed in my history of present illness, otherwise noncontributory. All systems that were negative were reviewed as well. SOCIAL HISTORY: Nonsmoker. FAMILY HISTORY: Noncontributory to lungs. PHYSICAL EXAMINATION: VITAL SIGNS: Reviewed. She is afebrile. Blood pressure is stable. Pulse ox 92% room air. NECK: Supple, no JVD. LUNGS: With crackles, left base along with few rhonchi. CARDIOVASCULAR: Regular rate and rhythm. ABDOMEN: Soft, nontender. EXTREMITIES: With no pitting edema. LABORATORY DATA: Reviewed. White cell count 7.4, hemoglobin 13.3 and platelets of 180. BUN and creatinine 22 and 0.9. IMPRESSION: 1. Dyspnea with coughing up light yellow sputum production and transient syncope. All these symptoms are related to pneumonia. She has crackles, left lower chest and infiltrates on the chest x-ray. We will do a noncontrast CT chest to better assess for infiltrates. There are mild infiltrates in the right lower lobe as well. 2. No clinical suspicion for congestive heart failure. 3. No significant history of tobacco use. 4. Mild azotemia likely related to dehydration. RECOMMENDATIONS: 1. Continue with present antibiotics. 2. Noncontrast CT chest. 3. Continue nebulizers p.r.n. and scheduled. 4. We will make further recommendations after review of the CT chest. ADALBERTO HERNANDEZ MD DR: BRIAN/rhonda JOB#: [id number] / [id number]
[2019-03-07 11:00] VITALS: BP 122/55
--- NOTE | 2019-03-07 11:45 | RAD ---
Examination: CT chest without contrast HISTORY: History of pneumonia COMPARISON: None available TECHNIQUE: Axial CT images of the chest were performed without contrast. Coronal and sagittal reformats were performed. Exposure: One or more of the following individualized dose reduction techniques were utilized for this examination: 1. Automated exposure control 2. Adjustment of the mA and/or kV according to patient size 3. Use of iterative reconstruction technique FINDINGS: The central airways are patent. Mild cardiomegaly. Diffuse coronary artery calcifications. Large hiatal hernia is identified. There is a small 4 mm nodule identified in the right middle lobe of the lung abutting the pleura. Mild bronchitic changes identified in the bibasilar lungs with mild prominence of the interstitium along the bronchial handley in the bibasilar lungs. Mild right basilar atelectasis or infiltrates The visualized noncontrasted liver, spleen, adrenals grossly appears unremarkable. Mild degenerative changes thoracic spine. IMPRESSION: 1. Mild bibasilar lung bronchiectatic changes with mild bronchial wall prominence in the bibasilar lungs, nonspecific probably bronchitis or pneumonitis. 2. Bibasilar lung airspace opacities likely atelectasis. 3. 4 mm pulmonary nodule identified in the right middle lobe of the lung. Follow-up per Fleischner Society guidelines with a follow-up CT in 12 months. 4. Large hiatal hernia. Electronically signed by: Addy Cartagena MD (03/07/2019 11:42 AM) [facility]
[2019-03-07] MEDS: cefTRIAXone IV Push 1 GM VIAL. IVP SCH (11:52)
[2019-03-07] MEDS: IPRATRPIUM/ALBUTEROL 0.5/2.5MG 3 ML NEBU. NEB SCH ×3 (12:00→20:03)
[2019-03-07] MEDS ORDERED: AZITHROMYCIN 250 MG TABLET. PO SCH (13:00)
--- NOTE | 2019-03-07 14:15 | NUR ---
Bedside Swallow Evaluation completed. Please see full report for additional details. Impressions: Functional oropharyngeal swallow w/o s/s aspiration w/ trials of thin liquids, puree, soft and regular solids. Pt reports multiple esophageal procedures to "stretch her esophagus" and demonstrates s/s esophageal dysphagia. Pt self modified size of bites and decreased rate. She does demonstrate minimal oropharyngeal delay w/ effortful swallow more so w/ solids and reports that she "pushes the food down d/t her narrow esophagus." Recommendations: Continue regular diet and thin liquids. Pt self regulates bite and drink size r/t esophageal concerns. No additional ST indicated at this time. Pt reports her esophageal swallow is functional for her but may want to consider GI referral if there are ongoing concerns w/ pt's swallow. D/w Moses Alberts, HARINDER and pt.
[2019-03-07] MEDS: AZITHROMYCIN 500 MG in IV NORMAL SALINE 250ML 250 ML IV SCH (14:23)
--- NOTE | 2019-03-07 14:56 | PDOC2 ---
CONSULT Date of Consult Date of Consult DATE: 03/07/19 TIME: 14:50 Reason for Consult Reason for Consult: Syncope Referring Physician Referring Physician: Dr. Aguero Identification/Chief Complaint Chief Complaint Weakness and passing out Source Source: Chart review, Patient History of Present Illness Reason for Visit: Patient is an 88-year-old female who was brought to the emergency room after reportedly losing consciousness for a few seconds while sitting at the kitchen table. The patient has been feeling somewhat fatigued over the last 2-3 days and has had decreased oral intake. She however reports no episodes of chest pain or previous history of syncope. Initially in the emergency room her blood pressure was significantly decreased at systolic of 80-90 but this responded to IV fluids. She denies any history of coronary disease or congestive heart failure. CT scan of the head showed no acute changes but probable chronic microvascular disease. Chest x-ray showed no acute infiltrates and a probable hiatal hernia. EKG shows a sinus rhythm with no acute ischemic changes. Troponins have been normal. BNP is mildly elevated at 1070. Today the patient reports feeling better. 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.) Past Surgical History Past Surgical History: Cataract Removal Family History Family History: Hypertension Social History No ALCOHOL: none Current Problem List Problem List Problems Medical Problems: (1) Acute bronchitis Status: Acute (2) Dehydration Status: Acute (3) Hiatal hernia Status: Acute (4) Sepsis Status: Acute (5) Syncope Status: Acute Current Medications Current Medications Current Medications Sodium Chloride 1,000 ml @ 1,000 mls/hr Q1H IV Last administered on 03/06/19at 11:21; Start 03/06/19 at 11:26; Stop 03/06/19 at 12:25; Status DC Albuterol/ Ipratropium (Duoneb) 3 ml 1X ONCE NEB Last administered on 03/06/19at 11:51; Start 03/06/19 at 11:30; Stop 03/06/19 at 11:31; Status DC Ceftriaxone Sodium (Rocephin) 1 gm 1X ONCE IVP Last administered on 03/06/19at 13:35; Start 03/06/19 at 13:30; Stop 03/06/19 at 13:31; Status DC Azithromycin 250 ml @ 250 mls/hr 1X ONCE IV Last administered on 03/06/19at 13:35; Start 03/06/19 at 13:30; Stop 03/06/19 at 14:29; Status DC Ondansetron HCl (Zofran) 4 mg PRN Q4HRS PRN IV NAUSEA/VOMITING; Start 03/06/19 at 14:30 Zolpidem Tartrate (Ambien) 5 mg PRN QHS PRN PO INSOMNIA Last administered on 03/06/19at 23:10; Start 03/06/19 at 14:30 Acetaminophen (Tylenol) 650 mg PRN Q4HRS PRN PO TEMP OVER 100.4F OR MILD PAIN; Start 03/06/19 at 14:30 Docusate Sodium (Colace) 100 mg PRN BID PRN PO CONSTIPATION; Start 03/06/19 at 14:30 Albuterol Sulfate (Ventolin Neb Soln) 2.5 mg PRN Q4HRS PRN NEB SHORTNESS OF BREATH; Start 03/06/19 at 14:30 Guaifenesin (Robitussin) 200 mg PRN Q4HRS PRN PO COUGH Last administered on 03/06/19at 18:52; Start 03/06/19 at 14:30 Lorazepam (Ativan) 0.5 mg PRN Q4HRS PRN PO ANXIETY / AGITATION; Start 03/06/19 at 14:30 Sodium Chloride 1,000 ml @ 125 mls/hr Q8H IV Last administered on 03/07/19at 05:51; Start 03/06/19 at 14:24; Stop 03/07/19 at 14:23; Status DC Ceftriaxone Sodium (Rocephin) 1 gm Q24H IVP Last administered on 03/07/19at 11:52; Start 03/07/19 at 13:00 Albuterol/ Ipratropium (Duoneb) 3 ml RTQID NEB ; Start 03/07/19 at 12:00 Azithromycin (Zithromax) 250 mg DAILY PO ; Start 03/07/19 at 13:00; Status Cancel Azithromycin 500 mg/Sodium Chloride 250 ml @ 250 mls/hr DAILY IV Last administered on 03/07/19at 14:23; Start 03/07/19 at 13:00 Lactobacillus Rhamnosus (Culturelle) 1 cap BID PO ; Start 03/07/19 at 21:00 Active Scripts Active Reported Lisinopril-Hctz 20-25 Mg Tab (Lisinopril/Hydrochlorothiazide) 1 Each Tablet 1 Tab PO DAILY Ambien (Zolpidem Tartrate) 5 Mg Tablet 5 Mg PO HS PRN Pravastatin Sodium 40 Mg Tablet 1 Tab PO DAILY Levothyroxine Sodium 88 Mcg Tablet 1 Tab PO DAILY Allergies Allergies: Coded Allergies: Sulfa (Sulfonamide Antibiotics) (Verified Allergy, Unknown, 03/06/19) ROS General: YES: Fatigue Neurological: Yes Weakness Physical Exam General: mild distress HEENT: Atraumatic Lungs: Clear to auscultation Heart: Regular rate Abdomen: Normal bowel sounds Vitals VITALS Vital Signs Date Time Temp Pulse Resp B/P (MAP) Pulse Ox O2 Delivery O2 Flow Rate FiO2 03/07/19 12:18 93 Room Air 03/07/19 11:00 97.5 95 16 122/55 (77) 97.5 Labs Labs Laboratory Tests Test 03/06/19 11:29 03/06/19 11:55 03/06/19 18:30 White Blood Count 7.4 x10^3/uL (4.0-11.0) Red Blood Count 4.41 x10^6/uL (3.50-5.40) Hemoglobin 13.3 g/dL (12.0-15.5) Hematocrit 39.2 % (36.0-47.0) Mean Corpuscular Volume 89 fL (79-100) Mean Corpuscular Hemoglobin 30 pg (25-35) Mean Corpuscular Hemoglobin Concent 34 g/dL (31-37) Red Cell Distribution Width 14.1 % (11.5-14.5) Platelet Count 180 x10^3/uL (140-400) Neutrophils (%) (Auto) 77 % (31-73) Lymphocytes (%) (Auto) 12 % (24-48) Monocytes (%) (Auto) 10 % (0-9) Eosinophils (%) (Auto) 1 % (0-3) Basophils (%) (Auto) 0 % (0-3) Neutrophils # (Auto) 5.7 x10^3uL (1.8-7.7) Lymphocytes # (Auto) 0.9 x10^3/uL (1.0-4.8) Monocytes # (Auto) 0.7 x10^3/uL (0.0-1.1) Eosinophils # (Auto) 0.1 x10^3/uL (0.0-0.7) Basophils # (Auto) 0.0 x10^3/uL (0.0-0.2) Sodium Level 136 mmol/L (136-145) Potassium Level 3.6 mmol/L (3.5-5.1) Chloride Level 98 mmol/L (98-107) Carbon Dioxide Level 24 mmol/L (21-32) Anion Gap 14 (6-14) Blood Urea Nitrogen 22 mg/dL (7-20) Creatinine 0.9 mg/dL (0.6-1.0) Estimated GFR (Cockcroft-Gault) 59.2 BUN/Creatinine Ratio 24 (6-20) Glucose Level 172 mg/dL (70-99) Lactic Acid Level 2.3 mmol/L (0.4-2.0) 1.3 mmol/L (0.4-2.0) Calcium Level 8.8 mg/dL (8.5-10.1) Magnesium Level 1.8 mg/dL (1.8-2.4) Total Bilirubin 0.7 mg/dL (0.2-1.0) Aspartate Amino Transf (AST/SGOT) 28 U/L (15-37) Alanine Aminotransferase (ALT/SGPT) 23 U/L (14-59) Alkaline Phosphatase 59 U/L (46-116) Creatine Kinase 477 U/L (26-192) Troponin I Quantitative < 0.017 ng/mL (0.000-0.055) XW-Ogt-Z-Type Natriuretic Peptide 1070 pg/mL (0-449) Total Protein 6.4 g/dL (6.4-8.2) Albumin 3.3 g/dL (3.4-5.0) Albumin/Globulin Ratio 1.1 (1.0-1.7) Urine Collection Type Unknown Urine Color Yellow Urine Clarity Clear Urine pH 5.5 Urine Specific [place] 1.015 Urine Protein Negative mg/dL (NEG-TRACE) Urine Glucose (UA) Negative mg/dL (NEG) Urine Ketones (Stick) Negative mg/dL (NEG) Urine Blood Small (NEG) Urine Nitrite Negative (NEG) Urine Bilirubin Negative (NEG) Urine Urobilinogen Dipstick 1.0 mg/dL (0.2 mg/dL) Urine Leukocyte Esterase Small (NEG) Urine RBC 6-10 /HPF (0-2) Urine WBC 1-4 /HPF (0-4) Urine Squamous Epithelial Cells Mod /LPF Urine Bacteria Few /HPF (0-FEW) Urine Hyaline Casts Many /HPF Urine Mucus Mod /LPF Laboratory Tests Test 03/06/19 18:30 Lactic Acid Level 1.3 mmol/L (0.4-2.0) Images Images CT head scan shows no acute changes with probable chronic microvascular disease. Chest x-ray shows a probable hiatal hernia Assessment/Plan Assessment/Plan 1. Syncopal episode. Patient's rhythm has been stable since admission. She was hypotensive also admission possibly secondary to dehydration which improved with fluids. At this time would continue on telemetry. We'll advance oral intake and if needed restart IV fluids. Check an echocardiogram for LV function. 2. Possible dehydration. Continuing to monitor lab. Push fluids as possible. 3. Initial question concerning possible sepsis. Would continue present treatments and monitor lab. 4. History of possible hyperlipidemia. We'll check morning lab. 5. Gastroesophageal reflux disease. Continue present treatment. Thank you for allowing us to participate in the care of your patient. SYED FELICIANO MD Mar 07, 2019 14:56
[2019-03-07 15:00] VITALS: BP 129/69
[2019-03-07 19:30] VITALS: BP 132/48
[2019-03-07] MEDS ORDERED: PANTOPRAZOLE 40 MG TABLET.DR. PO ONE (19:45)
[2019-03-07] MEDS: LACTOBACILLUS RHAMNOSUS GG 1 CAPSULE. PO SCH (20:03)
[2019-03-07] MEDS: ZOLPIDEM 5 MG TABLET. PO PRN (23:17)
[2019-03-07 23:37] VITALS: BP 178/78
[2019-03-08 03:51] VITALS: BP 117/59
[2019-03-08 05:36] LABS: BASO % 0 % (0-3); EOS # 0.2 x10^3/uL (0.0-0.7); EOS % 4 % (0-3); HEMATOCRIT 31.7 % (36.0-47.0); LYMPH # 1.1 x10^3/uL (1.0-4.8); LYMPH % 26 % (24-48); MEAN CORPUSCULAR HEMOGLOBIN 30 pg (25-35); MEAN CORPUSCULAR HGB CONC 35 g/dL (31-37); MEAN CORPUSCULAR VOLUME 88 fL (79-100); MONO # 0.5 x10^3/uL (0.0-1.1); MONO % 12 % (0-9); NEUT # 2.5 x10^3uL (1.8-7.7); NEUT % 57 % (31-73); PLATELET COUNT 154 x10^3/uL (140-400); RED BLOOD COUNT 3.61 x10^6/uL (3.50-5.40); RED CELL DISTRIBUTION WIDTH 14.4 % (11.5-14.5); WHITE BLOOD COUNT 4.3 x10^3/uL (4.0-11.0)
[2019-03-08 05:47] LABS: CALCIUM 8.6 mg/dL (8.5-10.1); CREATININE 0.6 mg/dL (0.6-1.0); GFR 94.6; POTASSIUM 3.4 mmol/L (3.5-5.1)
[2019-03-08 07:00] VITALS: BP 122/62
[2019-03-08] MEDS: LACTOBACILLUS RHAMNOSUS GG 1 CAPSULE. PO SCH ×2 (08:40→20:56)
[2019-03-08] MEDS: AZITHROMYCIN 500 MG in IV NORMAL SALINE 250ML 250 ML IV SCH (08:41)
[2019-03-08] MEDS: PANTOPRAZOLE 40 MG TABLET.DR. PO SCH (08:41)
[2019-03-08] MEDS: IPRATRPIUM/ALBUTEROL 0.5/2.5MG 3 ML NEBU. NEB SCH ×4 (08:53→20:12)
[2019-03-08 11:00] VITALS: BP 183/67
--- NOTE | 2019-03-08 11:24 | PDOC ---
[employer] PROGRESS NOTE Chief Complaint Chief Complaint Syncopal episode, etiology undetermined may have been vasovagal vs orthostasis given history of poor oral intake over the last 48 hours History of GERD chronic cough which well may be a consequence of the above seasonal allergies advanced age moderate dehydration Elevated pro BNP History of Present Illness History of Present Illness Pt seen and examined DW RN Still coughing and aspirating at the bedside Vitals Vitals Vital Signs Date Time Temp Pulse Resp B/P (MAP) Pulse Ox O2 Delivery O2 Flow Rate FiO2 03/08/19 08:55 94 Room Air 03/08/19 07:00 97.4 70 18 122/62 (82) 97.4 Physical Exam General: mild distress Heart: Regular rate Lungs: Other (R wheeze) Abdomen: Normal bowel sounds Extremities: No clubbing, No cyanosis Skin: No rashes, No breakdown Labs Labs: Laboratory Tests Test 03/08/19 04:40 White Blood Count 4.3 x10^3/uL (4.0-11.0) Red Blood Count 3.61 x10^6/uL (3.50-5.40) Hemoglobin 11.0 g/dL (12.0-15.5) Hematocrit 31.7 % (36.0-47.0) Mean Corpuscular Volume 88 fL (79-100) Mean Corpuscular Hemoglobin 30 pg (25-35) Mean Corpuscular Hemoglobin Concent 35 g/dL (31-37) Red Cell Distribution Width 14.4 % (11.5-14.5) Platelet Count 154 x10^3/uL (140-400) Neutrophils (%) (Auto) 57 % (31-73) Lymphocytes (%) (Auto) 26 % (24-48) Monocytes (%) (Auto) 12 % (0-9) Eosinophils (%) (Auto) 4 % (0-3) Basophils (%) (Auto) 0 % (0-3) Neutrophils # (Auto) 2.5 x10^3uL (1.8-7.7) Lymphocytes # (Auto) 1.1 x10^3/uL (1.0-4.8) Monocytes # (Auto) 0.5 x10^3/uL (0.0-1.1) Eosinophils # (Auto) 0.2 x10^3/uL (0.0-0.7) Basophils # (Auto) 0.0 x10^3/uL (0.0-0.2) Sodium Level 143 mmol/L (136-145) Potassium Level 3.4 mmol/L (3.5-5.1) Chloride Level 108 mmol/L (98-107) Carbon Dioxide Level 26 mmol/L (21-32) Anion Gap 9 (6-14) Blood Urea Nitrogen 10 mg/dL (7-20) Creatinine 0.6 mg/dL (0.6-1.0) Estimated GFR (Cockcroft-Gault) 94.6 Glucose Level 97 mg/dL (70-99) Calcium Level 8.6 mg/dL (8.5-10.1) IMPRESSION: 1. Mild bibasilar lung bronchiectatic changes with mild bronchial wall prominence in the bibasilar lungs, nonspecific probably bronchitis or pneumonitis. 2. Bibasilar lung airspace opacities likely atelectasis. 3. 4 mm pulmonary nodule identified in the right middle lobe of the lung. Follow-up per Fleischner Society guidelines with a follow-up CT in 12 months. 4. Large hiatal hernia. Review of Systems Review of Systems Complains of cough and weakness Assessment and Plan Assessmemt and Plan Problems Medical Problems: (1) Acute bronchitis Status: Acute (2) Dehydration Status: Acute (3) Hiatal hernia Status: Acute (4) Sepsis Status: Acute (5) Syncope Status: Acute Pneumonia 4 mm lung nodule Hiatal hernia Atelectasis Syncopal episode, etiology undetermined may have been vasovagal vs orthostasis given history of poor oral intake over the last 48 hours History of GERD chronic cough which well may be a consequence of the above seasonal allergies advanced age moderate dehydration Elevated pro BNP Plan IV antibiotics Duo nebs O2 per nasal cannula Home meds Cardiac monitoring DVT prophylaxis full code Appreciate subspecialist input Comment Review of Relevant I have reviewed the following items jeny (where applicable) has been applied. Labs Laboratory Tests Test 03/06/19 11:29 03/06/19 11:55 03/06/19 18:30 03/08/19 04:40 White Blood Count 7.4 x10^3/uL (4.0-11.0) 4.3 x10^3/uL (4.0-11.0) Red Blood Count 4.41 x10^6/uL (3.50-5.40) 3.61 x10^6/uL (3.50-5.40) Hemoglobin 13.3 g/dL (12.0-15.5) 11.0 g/dL (12.0-15.5) Hematocrit 39.2 % (36.0-47.0) 31.7 % (36.0-47.0) Mean Corpuscular Volume 89 fL (79-100) 88 fL (79-100) Mean Corpuscular Hemoglobin 30 pg (25-35) 30 pg (25-35) Mean Corpuscular Hemoglobin Concent 34 g/dL (31-37) 35 g/dL (31-37) Red Cell Distribution Width 14.1 % (11.5-14.5) 14.4 % (11.5-14.5) Platelet Count 180 x10^3/uL (140-400) 154 x10^3/uL (140-400) Neutrophils (%) (Auto) 77 % (31-73) 57 % (31-73) Lymphocytes (%) (Auto) 12 % (24-48) 26 % (24-48) Monocytes (%) (Auto) 10 % (0-9) 12 % (0-9) Eosinophils (%) (Auto) 1 % (0-3) 4 % (0-3) Basophils (%) (Auto) 0 % (0-3) 0 % (0-3) Neutrophils # (Auto) 5.7 x10^3uL (1.8-7.7) 2.5 x10^3uL (1.8-7.7) Lymphocytes # (Auto) 0.9 x10^3/uL (1.0-4.8) 1.1 x10^3/uL (1.0-4.8) Monocytes # (Auto) 0.7 x10^3/uL (0.0-1.1) 0.5 x10^3/uL (0.0-1.1) Eosinophils # (Auto) 0.1 x10^3/uL (0.0-0.7) 0.2 x10^3/uL (0.0-0.7) Basophils # (Auto) 0.0 x10^3/uL (0.0-0.2) 0.0 x10^3/uL (0.0-0.2) Sodium Level 136 mmol/L (136-145) 143 mmol/L (136-145) Potassium Level 3.6 mmol/L (3.5-5.1) 3.4 mmol/L (3.5-5.1) Chloride Level 98 mmol/L (98-107) 108 mmol/L (98-107) Carbon Dioxide Level 24 mmol/L (21-32) 26 mmol/L (21-32) Anion Gap 14 (6-14) 9 (6-14) Blood Urea Nitrogen 22 mg/dL (7-20) 10 mg/dL (7-20) Creatinine 0.9 mg/dL (0.6-1.0) 0.6 mg/dL (0.6-1.0) Estimated GFR (Cockcroft-Gault) 59.2 94.6 BUN/Creatinine Ratio 24 (6-20) Glucose Level 172 mg/dL (70-99) 97 mg/dL (70-99) Lactic Acid Level 2.3 mmol/L (0.4-2.0) 1.3 mmol/L (0.4-2.0) Calcium Level 8.8 mg/dL (8.5-10.1) 8.6 mg/dL (8.5-10.1) Magnesium Level 1.8 mg/dL (1.8-2.4) Total Bilirubin 0.7 mg/dL (0.2-1.0) Aspartate Amino Transf (AST/SGOT) 28 U/L (15-37) Alanine Aminotransferase (ALT/SGPT) 23 U/L (14-59) Alkaline Phosphatase 59 U/L (46-116) Creatine Kinase 477 U/L (26-192) Troponin I Quantitative < 0.017 ng/mL (0.000-0.055) BV-Eoc-C-Type Natriuretic Peptide 1070 pg/mL (0-449) Total Protein 6.4 g/dL (6.4-8.2) Albumin 3.3 g/dL (3.4-5.0) Albumin/Globulin Ratio 1.1 (1.0-1.7) Urine Collection Type Unknown Urine Color Yellow Urine Clarity Clear Urine pH 5.5 Urine Specific [place] 1.015 Urine Protein Negative mg/dL (NEG-TRACE) Urine Glucose (UA) Negative mg/dL (NEG) Urine Ketones (Stick) Negative mg/dL (NEG) Urine Blood Small (NEG) Urine Nitrite Negative (NEG) Urine Bilirubin Negative (NEG) Urine Urobilinogen Dipstick 1.0 mg/dL (0.2 mg/dL) Urine Leukocyte Esterase Small (NEG) Urine RBC 6-10 /HPF (0-2) Urine WBC 1-4 /HPF (0-4) Urine Squamous Epithelial Cells Mod /LPF Urine Bacteria Few /HPF (0-FEW) Urine Hyaline Casts Many /HPF Urine Mucus Mod /LPF Laboratory Tests Test 03/08/19 04:40 White Blood Count 4.3 x10^3/uL (4.0-11.0) Red Blood Count 3.61 x10^6/uL (3.50-5.40) Hemoglobin 11.0 g/dL (12.0-15.5) Hematocrit 31.7 % (36.0-47.0) Mean Corpuscular Volume 88 fL (79-100) Mean Corpuscular Hemoglobin 30 pg (25-35) Mean Corpuscular Hemoglobin Concent 35 g/dL (31-37) Red Cell Distribution Width 14.4 % (11.5-14.5) Platelet Count 154 x10^3/uL (140-400) Neutrophils (%) (Auto) 57 % (31-73) Lymphocytes (%) (Auto) 26 % (24-48) Monocytes (%) (Auto) 12 % (0-9) Eosinophils (%) (Auto) 4 % (0-3) Basophils (%) (Auto) 0 % (0-3) Neutrophils # (Auto) 2.5 x10^3uL (1.8-7.7) Lymphocytes # (Auto) 1.1 x10^3/uL (1.0-4.8) Monocytes # (Auto) 0.5 x10^3/uL (0.0-1.1) Eosinophils # (Auto) 0.2 x10^3/uL (0.0-0.7) Basophils # (Auto) 0.0 x10^3/uL (0.0-0.2) Sodium Level 143 mmol/L (136-145) Potassium Level 3.4 mmol/L (3.5-5.1) Chloride Level 108 mmol/L (98-107) Carbon Dioxide Level 26 mmol/L (21-32) Anion Gap 9 (6-14) Blood Urea Nitrogen 10 mg/dL (7-20) Creatinine 0.6 mg/dL (0.6-1.0) Estimated GFR (Cockcroft-Gault) 94.6 Glucose Level 97 mg/dL (70-99) Calcium Level 8.6 mg/dL (8.5-10.1) Microbiology 03/06/19 Blood Culture - Preliminary, Resulted NO GROWTH AFTER 1 DAY Medications Current Medications Sodium Chloride 1,000 ml @ 1,000 mls/hr Q1H IV Last administered on 03/06/19at 11:21; Start 03/06/19 at 11:26; Stop 03/06/19 at 12:25; Status DC Albuterol/ Ipratropium (Duoneb) 3 ml 1X ONCE NEB Last administered on 03/06/19at 11:51; Start 03/06/19 at 11:30; Stop 03/06/19 at 11:31; Status DC Ceftriaxone Sodium (Rocephin) 1 gm 1X ONCE IVP Last administered on 03/06/19at 13:35; Start 03/06/19 at 13:30; Stop 03/06/19 at 13:31; Status DC Azithromycin 250 ml @ 250 mls/hr 1X ONCE IV Last administered on 03/06/19at 13:35; Start 03/06/19 at 13:30; Stop 03/06/19 at 14:29; Status DC Ondansetron HCl (Zofran) 4 mg PRN Q4HRS PRN IV NAUSEA/VOMITING; Start 03/06/19 at 14:30 Zolpidem Tartrate (Ambien) 5 mg PRN QHS PRN PO INSOMNIA Last administered on 03/07/19at 23:17; Start 03/06/19 at 14:30 Acetaminophen (Tylenol) 650 mg PRN Q4HRS PRN PO TEMP OVER 100.4F OR MILD PAIN; Start 03/06/19 at 14:30 Docusate Sodium (Colace) 100 mg PRN BID PRN PO CONSTIPATION; Start 03/06/19 at 14:30 Albuterol Sulfate (Ventolin Neb Soln) 2.5 mg PRN Q4HRS PRN NEB SHORTNESS OF BREATH; Start 03/06/19 at 14:30 Guaifenesin (Robitussin) 200 mg PRN Q4HRS PRN PO COUGH Last administered on 03/06/19at 18:52; Start 03/06/19 at 14:30 Lorazepam (Ativan) 0.5 mg PRN Q4HRS PRN PO ANXIETY / AGITATION; Start 03/06/19 at 14:30 Sodium Chloride 1,000 ml @ 125 mls/hr Q8H IV Last administered on 03/07/19at 05:51; Start 03/06/19 at 14:24; Stop 03/07/19 at 14:23; Status DC Ceftriaxone Sodium (Rocephin) 1 gm Q24H IVP Last administered on 03/07/19at 11:52; Start 03/07/19 at 13:00 Albuterol/ Ipratropium (Duoneb) 3 ml RTQID NEB Last administered on 03/08/19at 08:53; Start 03/07/19 at 12:00 Azithromycin (Zithromax) 250 mg DAILY PO ; Start 03/07/19 at 13:00; Status Cancel Azithromycin 500 mg/Sodium Chloride 250 ml @ 250 mls/hr DAILY IV Last administered on 03/08/19at 08:41; Start 03/07/19 at 13:00 Lactobacillus Rhamnosus (Culturelle) 1 cap BID PO Last administered on 03/08/19at 08:40; Start 03/07/19 at 21:00 Pantoprazole Sodium (Protonix) 40 mg 1X ONCE PO Last administered on 03/07/19at 20:03; Start 03/07/19 at 19:45; Stop 03/07/19 at 19:46; Status DC Pantoprazole Sodium (Protonix) 40 mg DAILYAC PO Last administered on 03/08/19at 08:41; Start 03/08/19 at 07:30 Active Scripts Active Reported Lisinopril-Hctz 20-25 Mg Tab (Lisinopril/Hydrochlorothiazide) 1 Each Tablet 1 Tab PO DAILY Ambien (Zolpidem Tartrate) 5 Mg Tablet 5 Mg PO HS PRN Pravastatin Sodium 40 Mg Tablet 1 Tab PO DAILY Levothyroxine Sodium 88 Mcg Tablet 1 Tab PO DAILY Vitals/I & O Vital Sign - Last 24 Hours 03/07/19 03/07/19 03/07/1919 12:18 15:00 16:15 19:30 Temp 98.0 97.4 98.0 97.4 Pulse 87 72 Resp 16 16 B/P (MAP) 129/69 (89) 132/48 (76) Pulse Ox 93 94 95 O2 Delivery Room Air Room Air Room Air Room Air 03/07/19 03/07/19 03/07/19 03/08/19 20:00 20:04 23:37 03:51 Temp 97.7 98.1 97.7 98.1 Pulse 88 71 Resp 16 18 B/P (MAP) 178/78 (111) 117/59 (78) Pulse Ox 95 96 O2 Delivery Room Air Room Air Room Air Room Air 03/08/19 03/08/19 03/08/19 07:00 08:00 08:55 Temp 97.4 97.4 Pulse 70 Resp 18 B/P (MAP) 122/62 (82) Pulse Ox 95 94 O2 Delivery Room Air Room Air Room Air Intake and Output 03/07/19 03/07/19 03/08/19 15:00 23:00 07:00 Intake Total 320 ml 200 ml 320 ml Balance 320 ml 200 ml 320 ml POOL OCHOA III DO Mar 08, 2019 11:24
[2019-03-08] MEDS: cefTRIAXone IV Push 1 GM VIAL. IVP SCH (12:05)
--- NOTE | 2019-03-08 12:38 | PDOC ---
PULMONARY PROGRESS NOTES Subjective LESS COUGH Vitals Vital Signs Date Time Temp Pulse Resp B/P (MAP) Pulse Ox O2 Delivery O2 Flow Rate FiO2 03/08/19 12:09 Room Air 03/08/19 11:00 98.3 59 18 183/67 (105) 99 98.3 General: Alert, No acute distress Lungs: Crackles (bases) Labs Laboratory Tests Test 03/06/19 18:30 03/08/19 04:40 Lactic Acid Level 1.3 mmol/L (0.4-2.0) White Blood Count 4.3 x10^3/uL (4.0-11.0) Red Blood Count 3.61 x10^6/uL (3.50-5.40) Hemoglobin 11.0 g/dL (12.0-15.5) Hematocrit 31.7 % (36.0-47.0) Mean Corpuscular Volume 88 fL (79-100) Mean Corpuscular Hemoglobin 30 pg (25-35) Mean Corpuscular Hemoglobin Concent 35 g/dL (31-37) Red Cell Distribution Width 14.4 % (11.5-14.5) Platelet Count 154 x10^3/uL (140-400) Neutrophils (%) (Auto) 57 % (31-73) Lymphocytes (%) (Auto) 26 % (24-48) Monocytes (%) (Auto) 12 % (0-9) Eosinophils (%) (Auto) 4 % (0-3) Basophils (%) (Auto) 0 % (0-3) Neutrophils # (Auto) 2.5 x10^3uL (1.8-7.7) Lymphocytes # (Auto) 1.1 x10^3/uL (1.0-4.8) Monocytes # (Auto) 0.5 x10^3/uL (0.0-1.1) Eosinophils # (Auto) 0.2 x10^3/uL (0.0-0.7) Basophils # (Auto) 0.0 x10^3/uL (0.0-0.2) Sodium Level 143 mmol/L (136-145) Potassium Level 3.4 mmol/L (3.5-5.1) Chloride Level 108 mmol/L (98-107) Carbon Dioxide Level 26 mmol/L (21-32) Anion Gap 9 (6-14) Blood Urea Nitrogen 10 mg/dL (7-20) Creatinine 0.6 mg/dL (0.6-1.0) Estimated GFR (Cockcroft-Gault) 94.6 Glucose Level 97 mg/dL (70-99) Calcium Level 8.6 mg/dL (8.5-10.1) Laboratory Tests Test 03/08/19 04:40 White Blood Count 4.3 x10^3/uL (4.0-11.0) Red Blood Count 3.61 x10^6/uL (3.50-5.40) Hemoglobin 11.0 g/dL (12.0-15.5) Hematocrit 31.7 % (36.0-47.0) Mean Corpuscular Volume 88 fL (79-100) Mean Corpuscular Hemoglobin 30 pg (25-35) Mean Corpuscular Hemoglobin Concent 35 g/dL (31-37) Red Cell Distribution Width 14.4 % (11.5-14.5) Platelet Count 154 x10^3/uL (140-400) Neutrophils (%) (Auto) 57 % (31-73) Lymphocytes (%) (Auto) 26 % (24-48) Monocytes (%) (Auto) 12 % (0-9) Eosinophils (%) (Auto) 4 % (0-3) Basophils (%) (Auto) 0 % (0-3) Neutrophils # (Auto) 2.5 x10^3uL (1.8-7.7) Lymphocytes # (Auto) 1.1 x10^3/uL (1.0-4.8) Monocytes # (Auto) 0.5 x10^3/uL (0.0-1.1) Eosinophils # (Auto) 0.2 x10^3/uL (0.0-0.7) Basophils # (Auto) 0.0 x10^3/uL (0.0-0.2) Sodium Level 143 mmol/L (136-145) Potassium Level 3.4 mmol/L (3.5-5.1) Chloride Level 108 mmol/L (98-107) Carbon Dioxide Level 26 mmol/L (21-32) Anion Gap 9 (6-14) Blood Urea Nitrogen 10 mg/dL (7-20) Creatinine 0.6 mg/dL (0.6-1.0) Estimated GFR (Cockcroft-Gault) 94.6 Glucose Level 97 mg/dL (70-99) Calcium Level 8.6 mg/dL (8.5-10.1) Medications Active Scripts Medications Dose Route/Sig Max Daily Dose Days Date Category Lisinopril-Hctz 20-25 Mg Tab (Lisinopril/Hydrochlorothiazide) 1 Each Tablet 1 Tab PO DAILY 03/07/19 Reported Ambien (Zolpidem Tartrate) 5 Mg Tablet 5 Mg PO HS PRN 03/07/19 Reported Pravastatin Sodium 40 Mg Tablet 1 Tab PO DAILY 03/07/19 Reported Levothyroxine Sodium 88 Mcg Tablet 1 Tab PO DAILY 03/07/19 Reported Impression . 1. Dyspnea with coughing up light yellow sputum production and transient syncope. All these symptoms are related to pneumonia. She has crackles, left lower chest and infiltrates on the chest x-ray. 2. No clinical suspicion for congestive heart failure. 3. No significant history of tobacco use. 4. Mild azotemia likely related to dehydration. Plan . 1. Continue with present antibiotics. 2. CT chest reviewed. Bronchiectasis bases/ atelectasis/ ? pneumonia 3. Continue nebulizers p.r.n. and scheduled. 4. d/c home in am on PO abx ADALBERTO HERNANDEZ MD Mar 08, 2019 12:38
[2019-03-08] MEDS ORDERED: ZOLPIDEM 5 MG TABLET. PO PRN (13:00)
--- NOTE | 2019-03-08 13:10 | PDOC ---
PROGRESS NOTES Subjective Subjective Patient seen and examined The patient looks and feels mildly better today. Objective Objective Vital Signs Date Time Temp Pulse Resp B/P (MAP) Pulse Ox O2 Delivery O2 Flow Rate FiO2 03/08/19 12:09 Room Air 03/08/19 11:00 98.3 59 18 183/67 (105) 99 98.3 Intake and Output 03/08/19 07:00 Intake Total 840 ml Balance 840 ml Intake Oral 840 ml # Voids 4 Physical Exam Abdomen: Normal bowel sounds Heart: Regular rate General: mild distress Lungs: Clear to auscultation Assessment Assessment Problems Medical Problems: (1) Acute bronchitis Status: Acute (2) Dehydration Status: Acute (3) Hiatal hernia Status: Acute (4) Sepsis Status: Acute (5) Syncope Status: Acute 1. Syncopal episode. Patient's rhythm remains stable. Blood pressure also improved. Continue present medications and telemetry. Echocardiogram today. 2. Possible dehydration. Continuing to monitor lab. Push fluids as possible. 3. Initial question concerning possible sepsis. Would continue present treatments and monitor lab. 4. History of possible hyperlipidemia. Continue present treatment. 5. Gastroesophageal reflux disease. Continue present treatment. Comment Review of Relevant I have reviewed the following items jeny (where applicable) has been applied. Labs Laboratory Tests Test 03/06/19 18:30 03/08/19 04:40 Lactic Acid Level 1.3 mmol/L (0.4-2.0) White Blood Count 4.3 x10^3/uL (4.0-11.0) Red Blood Count 3.61 x10^6/uL (3.50-5.40) Hemoglobin 11.0 g/dL (12.0-15.5) Hematocrit 31.7 % (36.0-47.0) Mean Corpuscular Volume 88 fL (79-100) Mean Corpuscular Hemoglobin 30 pg (25-35) Mean Corpuscular Hemoglobin Concent 35 g/dL (31-37) Red Cell Distribution Width 14.4 % (11.5-14.5) Platelet Count 154 x10^3/uL (140-400) Neutrophils (%) (Auto) 57 % (31-73) Lymphocytes (%) (Auto) 26 % (24-48) Monocytes (%) (Auto) 12 % (0-9) Eosinophils (%) (Auto) 4 % (0-3) Basophils (%) (Auto) 0 % (0-3) Neutrophils # (Auto) 2.5 x10^3uL (1.8-7.7) Lymphocytes # (Auto) 1.1 x10^3/uL (1.0-4.8) Monocytes # (Auto) 0.5 x10^3/uL (0.0-1.1) Eosinophils # (Auto) 0.2 x10^3/uL (0.0-0.7) Basophils # (Auto) 0.0 x10^3/uL (0.0-0.2) Sodium Level 143 mmol/L (136-145) Potassium Level 3.4 mmol/L (3.5-5.1) Chloride Level 108 mmol/L (98-107) Carbon Dioxide Level 26 mmol/L (21-32) Anion Gap 9 (6-14) Blood Urea Nitrogen 10 mg/dL (7-20) Creatinine 0.6 mg/dL (0.6-1.0) Estimated GFR (Cockcroft-Gault) 94.6 Glucose Level 97 mg/dL (70-99) Calcium Level 8.6 mg/dL (8.5-10.1) Laboratory Tests Test 03/08/19 04:40 White Blood Count 4.3 x10^3/uL (4.0-11.0) Red Blood Count 3.61 x10^6/uL (3.50-5.40) Hemoglobin 11.0 g/dL (12.0-15.5) Hematocrit 31.7 % (36.0-47.0) Mean Corpuscular Volume 88 fL (79-100) Mean Corpuscular Hemoglobin 30 pg (25-35) Mean Corpuscular Hemoglobin Concent 35 g/dL (31-37) Red Cell Distribution Width 14.4 % (11.5-14.5) Platelet Count 154 x10^3/uL (140-400) Neutrophils (%) (Auto) 57 % (31-73) Lymphocytes (%) (Auto) 26 % (24-48) Monocytes (%) (Auto) 12 % (0-9) Eosinophils (%) (Auto) 4 % (0-3) Basophils (%) (Auto) 0 % (0-3) Neutrophils # (Auto) 2.5 x10^3uL (1.8-7.7) Lymphocytes # (Auto) 1.1 x10^3/uL (1.0-4.8) Monocytes # (Auto) 0.5 x10^3/uL (0.0-1.1) Eosinophils # (Auto) 0.2 x10^3/uL (0.0-0.7) Basophils # (Auto) 0.0 x10^3/uL (0.0-0.2) Sodium Level 143 mmol/L (136-145) Potassium Level 3.4 mmol/L (3.5-5.1) Chloride Level 108 mmol/L (98-107) Carbon Dioxide Level 26 mmol/L (21-32) Anion Gap 9 (6-14) Blood Urea Nitrogen 10 mg/dL (7-20) Creatinine 0.6 mg/dL (0.6-1.0) Estimated GFR (Cockcroft-Gault) 94.6 Glucose Level 97 mg/dL (70-99) Calcium Level 8.6 mg/dL (8.5-10.1) Microbiology 03/06/19 Blood Culture - Preliminary, Resulted NO GROWTH AFTER 2 DAYS Medications Current Medications Sodium Chloride 1,000 ml @ 1,000 mls/hr Q1H IV Last administered on 03/06/19at 11:21; Start 03/06/19 at 11:26; Stop 03/06/19 at 12:25; Status DC Albuterol/ Ipratropium (Duoneb) 3 ml 1X ONCE NEB Last administered on 03/06/19at 11:51; Start 03/06/19 at 11:30; Stop 03/06/19 at 11:31; Status DC Ceftriaxone Sodium (Rocephin) 1 gm 1X ONCE IVP Last administered on 03/06/19at 13:35; Start 03/06/19 at 13:30; Stop 03/06/19 at 13:31; Status DC Azithromycin 250 ml @ 250 mls/hr 1X ONCE IV Last administered on 03/06/19at 13:35; Start 03/06/19 at 13:30; Stop 03/06/19 at 14:29; Status DC Ondansetron HCl (Zofran) 4 mg PRN Q4HRS PRN IV NAUSEA/VOMITING; Start 03/06/19 at 14:30 Zolpidem Tartrate (Ambien) 5 mg PRN QHS PRN PO INSOMNIA Last administered on 03/07/19at 23:17; Start 03/06/19 at 14:30 Acetaminophen (Tylenol) 650 mg PRN Q4HRS PRN PO TEMP OVER 100.4F OR MILD PAIN; Start 03/06/19 at 14:30 Docusate Sodium (Colace) 100 mg PRN BID PRN PO CONSTIPATION; Start 03/06/19 at 14:30 Albuterol Sulfate (Ventolin Neb Soln) 2.5 mg PRN Q4HRS PRN NEB SHORTNESS OF BREATH; Start 03/06/19 at 14:30 Guaifenesin (Robitussin) 200 mg PRN Q4HRS PRN PO COUGH Last administered on 03/06/19at 18:52; Start 03/06/19 at 14:30 Lorazepam (Ativan) 0.5 mg PRN Q4HRS PRN PO ANXIETY / AGITATION; Start 03/06/19 at 14:30 Sodium Chloride 1,000 ml @ 125 mls/hr Q8H IV Last administered on 03/07/19at 05:51; Start 03/06/19 at 14:24; Stop 03/07/19 at 14:23; Status DC Ceftriaxone Sodium (Rocephin) 1 gm Q24H IVP Last administered on 03/08/19at 12:05; Start 03/07/19 at 13:00 Albuterol/ Ipratropium (Duoneb) 3 ml RTQID NEB Last administered on 03/08/19at 12:09; Start 03/07/19 at 12:00 Azithromycin (Zithromax) 250 mg DAILY PO ; Start 03/07/19 at 13:00; Status Cancel Azithromycin 500 mg/Sodium Chloride 250 ml @ 250 mls/hr DAILY IV Last administered on 03/08/19at 08:41; Start 03/07/19 at 13:00 Lactobacillus Rhamnosus (Culturelle) 1 cap BID PO Last administered on 03/08/19at 08:40; Start 03/07/19 at 21:00 Pantoprazole Sodium (Protonix) 40 mg 1X ONCE PO Last administered on 03/07/19at 20:03; Start 03/07/19 at 19:45; Stop 03/07/19 at 19:46; Status DC Pantoprazole Sodium (Protonix) 40 mg DAILYAC PO Last administered on 03/08/19at 08:41; Start 03/08/19 at 07:30 Levothyroxine Sodium (Synthroid) 88 mcg DAILY06 PO ; Start 03/08/19 at 13:00 Zolpidem Tartrate (Ambien) 5 mg HS PRN PO INSOMNIA; Start 03/08/19 at 13:00; Status UNV Non-Formulary Medication (Lisinopril/ Hydrochlorothiazide (Lisinopril-Hctz 20-25 Mg Tab)) 1 tab DAILY PO ; Start 03/09/19 at 09:00; Status UNV Atorvastatin Calcium (Lipitor) 10 mg QHS PO ; Start 03/08/19 at 21:00 Amlodipine Besylate (Norvasc) 10 mg DAILY PO ; Start 03/08/19 at 13:30 Active Scripts Active Reported Lisinopril-Hctz 20-25 Mg Tab (Lisinopril/Hydrochlorothiazide) 1 Each Tablet 1 Tab PO DAILY Ambien (Zolpidem Tartrate) 5 Mg Tablet 5 Mg PO HS PRN Pravastatin Sodium 40 Mg Tablet 1 Tab PO DAILY Levothyroxine Sodium 88 Mcg Tablet 1 Tab PO DAILY Vitals/I & O Vital Sign - Last 24 Hours 03/07/19 03/07/19 03/07/19 03/07/19 15:00 16:15 19:30 20:00 Temp 98.0 97.4 98.0 97.4 Pulse 87 72 Resp 16 16 B/P (MAP) 129/69 (89) 132/48 (76) Pulse Ox 94 95 O2 Delivery Room Air Room Air Room Air Room Air 03/07/19 03/07/19 03/08/19 03/08/19 20:04 23:37 03:51 07:00 Temp 97.7 98.1 97.4 97.7 98.1 97.4 Pulse 88 71 70 Resp 16 18 18 B/P (MAP) 178/78 (111) 117/59 (78) 122/62 (82) Pulse Ox 95 96 95 O2 Delivery Room Air Room Air Room Air Room Air 03/08/19 03/08/19 03/08/19 03/08/19 08:00 08:55 11:00 12:09 Temp 98.3 98.3 Pulse 59 Resp 18 B/P (MAP) 183/67 (105) Pulse Ox 94 99 O2 Delivery Room Air Room Air Room Air Room Air Intake and Output 03/07/19 03/07/19 03/08/19 15:00 23:00 07:00 Intake Total 320 ml 200 ml 320 ml Balance 320 ml 200 ml 320 ml SYED FELICIANO MD Mar 08, 2019 13:10
[2019-03-08] MEDS: LISINOPRIL 20 MG TABLET PO SCH (13:59)
[2019-03-08] MEDS: hydroCHLOROthiazide 25 MG TABLET PO SCH (13:59)
[2019-03-08] MEDS: LEVOTHYROXINE 88 MCG TABLET PO SCH (13:59)
[2019-03-08] MEDS: amLODIPine BESYLATE 10 MG TABLET PO SCH (14:00)
[2019-03-08 15:00] VITALS: BP 129/64
[2019-03-08 19:13] VITALS: BP 97/74
[2019-03-08] MEDS: ZOLPIDEM 5 MG TABLET. PO PRN (20:57)
[2019-03-08] MEDS ORDERED: ATORVASTATIN CALCIUM 10 MG TABLET. PO SCH (21:00)
[2019-03-08 23:27] VITALS: BP 135/51
[2019-03-09 03:23] LABS: BASO % 1 % (0-3); EOS # 0.2 x10^3/uL (0.0-0.7); EOS % 4 % (0-3); HEMATOCRIT 34.7 % (36.0-47.0); HEMOGLOBIN 11.6 g/dL (12.0-15.5); LYMPH # 1.2 x10^3/uL (1.0-4.8); LYMPH % 28 % (24-48); MEAN CORPUSCULAR HEMOGLOBIN 29 pg (25-35); MEAN CORPUSCULAR HGB CONC 33 g/dL (31-37); MEAN CORPUSCULAR VOLUME 88 fL (79-100); MONO # 0.5 x10^3/uL (0.0-1.1); MONO % 10 % (0-9); NEUT # 2.6 x10^3uL (1.8-7.7); NEUT % 58 % (31-73); PLATELET COUNT 183 x10^3/uL (140-400); RED BLOOD COUNT 3.94 x10^6/uL (3.50-5.40); RED CELL DISTRIBUTION WIDTH 13.9 % (11.5-14.5); WHITE BLOOD COUNT 4.5 x10^3/uL (4.0-11.0)
[2019-03-09 03:49] VITALS: BP 124/68
[2019-03-09 04:01] LABS: CALCIUM 9.1 mg/dL (8.5-10.1); CREATININE 0.6 mg/dL (0.6-1.0); GFR 94.6; POTASSIUM 3.6 mmol/L (3.5-5.1)
[2019-03-09] MEDS: LEVOTHYROXINE 88 MCG TABLET PO SCH (06:00)
[2019-03-09 07:00] VITALS: BP 148/83
[2019-03-09] MEDS: amLODIPine BESYLATE 10 MG TABLET PO SCH (07:52)
[2019-03-09] MEDS: LACTOBACILLUS RHAMNOSUS GG 1 CAPSULE. PO SCH (07:53)
[2019-03-09] MEDS: LISINOPRIL 20 MG TABLET PO SCH (07:53)
[2019-03-09] MEDS: hydroCHLOROthiazide 25 MG TABLET PO SCH (07:53)
[2019-03-09] MEDS: PANTOPRAZOLE 40 MG TABLET.DR. PO SCH (07:53)
--- NOTE | 2019-03-09 08:33 | CARD ---
MR#: [id number] Date of Study: 03/08/2019 Ordering Physician: SYED WISEMAN, Referring Physician: FALLON CLEMENTS Tech: Shelly Lorenz RDCS APPROVED REPORT EXAM: Two-dimensional and M-mode echocardiogram with Doppler and color Doppler. Other Information Quality : Good INDICATION Syncope Sepsis 2D DIMENSIONS RVDd2.3 (2.9-3.5cm)Left Atrium(2D)3.4 (1.6-4.0cm) IVSd0.9 (0.7-1.1cm)Aortic Root(2D)2.9 (2.0-3.7cm) LVDd4.1 (3.9-5.9cm)LVOT Diameter2.0 (1.8-2.4cm) PWd0.7 (0.7-1.1cm)LVDs2.6 (2.5-4.0cm) FS (%) 37.6 %SV51.0 ml LVEF(%)60.0 (>50%) Aortic Valve AoV Peak Alejandro.159.6cm/sAoV VTI33.0cm AO Peak GR.10.2mmHgLVOT VTI 23.87cm AO Mean GR.5mmHgAVA (VTI)2.37cm2 Mitral Valve MV E Yrxsdrkm283.3cm/sMV DECEL PUKY290fk MV A Rqgvnkns775.1cm/sE/A Ratio1.1 TDI Lateral E' P. V7.98cm/sMedial E' P. V6.50cm/s E/Lateral E'14.9E/Medial E'18.4 Tricuspid Valve TR P. Asycekum321ar/sRAP SFASFRQT2olLz TR Peak Gr.10eoRgOMMC38cfGf Pulmonary Vein S1 Kpvwlukb56.3cm/sS2 Clapphrw09.16cm/s D2 Ctlwelsl61.2cm/s LEFT VENTRICLE The left ventricle is normal size. There is normal left ventricular wall thickness. The left ventricu lar systolic function is normal and the ejection fraction is within normal range. The Ejection Fracti on is 55-60%. There is normal LV segmental wall motion. RIGHT VENTRICLE The right ventricle is normal size. The right ventricular systolic function is normal. ATRIA The left atrium size is normal. The right atrium size is normal. The interatrial septum is intact wit h no evidence for an atrial septal defect or patent foramen ovale as noted on 2-D or Doppler imaging. AORTIC VALVE The aortic valve is calcified but opens well. Doppler and Color Flow revealed no significant aortic r egurgitation. There is no significant aortic valvular stenosis. MITRAL VALVE The mitral valve is calcified but opens well. There is no evidence of mitral valve prolapse. There is no mitral valve stenosis. Doppler and Color Flow revealed trace mitral valve regurgitation. TRICUSPID VALVE The tricuspid valve is normal in structure and function. Doppler and Color Flow revealed mild tricusp id regurgitation. The PA pressure was estimated at 42 mmHg. There is no tricuspid valve stenosis. PULMONIC VALVE The pulmonic valve is not well visualized. Doppler and Color Flow revealed trace pulmonic valvular re gurgitation. There is no pulmonic valvular stenosis. GREAT VESSELS The aortic root is normal in size. The ascending aorta is normal in size. The IVC is normal in size a nd collapses >50% with inspiration. PERICARDIAL EFFUSION There is no evidence of significant pericardial effusion. Critical Notification Critical Value: No <Conclusion> The left ventricle is normal size. The left ventricular systolic function is normal and the ejection fraction is within normal range. The Ejection Fraction is 55-60%. Doppler and Color Flow revealed no significant aortic regurgitation. There is no significant aortic valvular stenosis. Doppler and Color Flow revealed trace mitral valve regurgitation. Doppler and Color Flow revealed mild tricuspid regurgitation. The PA pressure was estimated at 42 mmHg. Signed by : Syed Wiseman MD Electronically Approved : 03/09/2019 08:33:09
[2019-03-09] MEDS: IPRATRPIUM/ALBUTEROL 0.5/2.5MG 3 ML NEBU. NEB SCH ×2 (09:03→11:52)
--- NOTE | 2019-03-09 09:34 | PDOC ---
PULMONARY PROGRESS NOTES Subjective LESS COUGH Vitals Vital Signs Date Time Temp Pulse Resp B/P (MAP) Pulse Ox O2 Delivery O2 Flow Rate FiO2 03/09/19 09:04 96 Room Air 03/09/19 07:53 148/73 03/09/19 07:00 97.7 92 18 97.7 General: Alert, No acute distress Lungs: Crackles (bases) Labs Laboratory Tests Test 03/08/19 04:40 03/09/19 03:15 White Blood Count 4.3 x10^3/uL (4.0-11.0) 4.5 x10^3/uL (4.0-11.0) Red Blood Count 3.61 x10^6/uL (3.50-5.40) 3.94 x10^6/uL (3.50-5.40) Hemoglobin 11.0 g/dL (12.0-15.5) 11.6 g/dL (12.0-15.5) Hematocrit 31.7 % (36.0-47.0) 34.7 % (36.0-47.0) Mean Corpuscular Volume 88 fL (79-100) 88 fL (79-100) Mean Corpuscular Hemoglobin 30 pg (25-35) 29 pg (25-35) Mean Corpuscular Hemoglobin Concent 35 g/dL (31-37) 33 g/dL (31-37) Red Cell Distribution Width 14.4 % (11.5-14.5) 13.9 % (11.5-14.5) Platelet Count 154 x10^3/uL (140-400) 183 x10^3/uL (140-400) Neutrophils (%) (Auto) 57 % (31-73) 58 % (31-73) Lymphocytes (%) (Auto) 26 % (24-48) 28 % (24-48) Monocytes (%) (Auto) 12 % (0-9) 10 % (0-9) Eosinophils (%) (Auto) 4 % (0-3) 4 % (0-3) Basophils (%) (Auto) 0 % (0-3) 1 % (0-3) Neutrophils # (Auto) 2.5 x10^3uL (1.8-7.7) 2.6 x10^3uL (1.8-7.7) Lymphocytes # (Auto) 1.1 x10^3/uL (1.0-4.8) 1.2 x10^3/uL (1.0-4.8) Monocytes # (Auto) 0.5 x10^3/uL (0.0-1.1) 0.5 x10^3/uL (0.0-1.1) Eosinophils # (Auto) 0.2 x10^3/uL (0.0-0.7) 0.2 x10^3/uL (0.0-0.7) Basophils # (Auto) 0.0 x10^3/uL (0.0-0.2) 0.0 x10^3/uL (0.0-0.2) Sodium Level 143 mmol/L (136-145) 142 mmol/L (136-145) Potassium Level 3.4 mmol/L (3.5-5.1) 3.6 mmol/L (3.5-5.1) Chloride Level 108 mmol/L (98-107) 106 mmol/L (98-107) Carbon Dioxide Level 26 mmol/L (21-32) 26 mmol/L (21-32) Anion Gap 9 (6-14) 10 (6-14) Blood Urea Nitrogen 10 mg/dL (7-20) 8 mg/dL (7-20) Creatinine 0.6 mg/dL (0.6-1.0) 0.6 mg/dL (0.6-1.0) Estimated GFR (Cockcroft-Gault) 94.6 94.6 Glucose Level 97 mg/dL (70-99) 98 mg/dL (70-99) Calcium Level 8.6 mg/dL (8.5-10.1) 9.1 mg/dL (8.5-10.1) Laboratory Tests Test 03/09/19 03:15 White Blood Count 4.5 x10^3/uL (4.0-11.0) Red Blood Count 3.94 x10^6/uL (3.50-5.40) Hemoglobin 11.6 g/dL (12.0-15.5) Hematocrit 34.7 % (36.0-47.0) Mean Corpuscular Volume 88 fL (79-100) Mean Corpuscular Hemoglobin 29 pg (25-35) Mean Corpuscular Hemoglobin Concent 33 g/dL (31-37) Red Cell Distribution Width 13.9 % (11.5-14.5) Platelet Count 183 x10^3/uL (140-400) Neutrophils (%) (Auto) 58 % (31-73) Lymphocytes (%) (Auto) 28 % (24-48) Monocytes (%) (Auto) 10 % (0-9) Eosinophils (%) (Auto) 4 % (0-3) Basophils (%) (Auto) 1 % (0-3) Neutrophils # (Auto) 2.6 x10^3uL (1.8-7.7) Lymphocytes # (Auto) 1.2 x10^3/uL (1.0-4.8) Monocytes # (Auto) 0.5 x10^3/uL (0.0-1.1) Eosinophils # (Auto) 0.2 x10^3/uL (0.0-0.7) Basophils # (Auto) 0.0 x10^3/uL (0.0-0.2) Sodium Level 142 mmol/L (136-145) Potassium Level 3.6 mmol/L (3.5-5.1) Chloride Level 106 mmol/L (98-107) Carbon Dioxide Level 26 mmol/L (21-32) Anion Gap 10 (6-14) Blood Urea Nitrogen 8 mg/dL (7-20) Creatinine 0.6 mg/dL (0.6-1.0) Estimated GFR (Cockcroft-Gault) 94.6 Glucose Level 98 mg/dL (70-99) Calcium Level 9.1 mg/dL (8.5-10.1) Medications Active Scripts Medications Dose Route/Sig Max Daily Dose Days Date Category Lisinopril-Hctz 20-25 Mg Tab (Lisinopril/Hydrochlorothiazide) 1 Each Tablet 1 Tab PO DAILY 03/07/19 Reported Ambien (Zolpidem Tartrate) 5 Mg Tablet 5 Mg PO HS PRN 03/07/19 Reported Pravastatin Sodium 40 Mg Tablet 1 Tab PO DAILY 03/07/19 Reported Levothyroxine Sodium 88 Mcg Tablet 1 Tab PO DAILY 03/07/19 Reported Impression . 1. Dyspnea with coughing up light yellow sputum production and transient syncope. All these symptoms are related to pneumonia. She has crackles, left lower chest and infiltrates on the chest x-ray. 2. No clinical suspicion for congestive heart failure. 3. No significant history of tobacco use. 4. Mild azotemia likely related to dehydration. Plan . D/C HOME ' FOLLOW UP WITH DR HERNANDEZ IN MAY JJ LOCKHART MD Mar 09, 2019 09:34
[2019-03-09] MEDS: AZITHROMYCIN 500 MG in IV NORMAL SALINE 250ML 250 ML IV SCH (09:50)
--- NOTE | 2019-03-09 10:00 | PDOC ---
[employer] PROGRESS NOTE Chief Complaint Chief Complaint Syncopal episode, etiology undetermined may have been vasovagal vs orthostasis given history of poor oral intake over the last 48 hours History of GERD chronic cough which well may be a consequence of the above seasonal allergies advanced age moderate dehydration Elevated pro BNP History of Present Illness History of Present Illness Pt seen and examined She is up in the chair and seems to be at baseline Minimal cough today DW RN Hope to discharge later today if okay with subspecialist Vitals Vitals Vital Signs Date Time Temp Pulse Resp B/P (MAP) Pulse Ox O2 Delivery O2 Flow Rate FiO2 03/09/19 09:04 96 Room Air 03/09/19 07:53 148/73 03/09/19 07:00 97.7 92 18 97.7 Physical Exam General: Alert Heart: Regular rate, Normal S1, Normal S2 Lungs: Clear Abdomen: Normal bowel sounds Extremities: No clubbing, No cyanosis Skin: No rashes, No breakdown Labs Labs: Laboratory Tests Test 03/09/19 03:15 White Blood Count 4.5 x10^3/uL (4.0-11.0) Red Blood Count 3.94 x10^6/uL (3.50-5.40) Hemoglobin 11.6 g/dL (12.0-15.5) Hematocrit 34.7 % (36.0-47.0) Mean Corpuscular Volume 88 fL (79-100) Mean Corpuscular Hemoglobin 29 pg (25-35) Mean Corpuscular Hemoglobin Concent 33 g/dL (31-37) Red Cell Distribution Width 13.9 % (11.5-14.5) Platelet Count 183 x10^3/uL (140-400) Neutrophils (%) (Auto) 58 % (31-73) Lymphocytes (%) (Auto) 28 % (24-48) Monocytes (%) (Auto) 10 % (0-9) Eosinophils (%) (Auto) 4 % (0-3) Basophils (%) (Auto) 1 % (0-3) Neutrophils # (Auto) 2.6 x10^3uL (1.8-7.7) Lymphocytes # (Auto) 1.2 x10^3/uL (1.0-4.8) Monocytes # (Auto) 0.5 x10^3/uL (0.0-1.1) Eosinophils # (Auto) 0.2 x10^3/uL (0.0-0.7) Basophils # (Auto) 0.0 x10^3/uL (0.0-0.2) Sodium Level 142 mmol/L (136-145) Potassium Level 3.6 mmol/L (3.5-5.1) Chloride Level 106 mmol/L (98-107) Carbon Dioxide Level 26 mmol/L (21-32) Anion Gap 10 (6-14) Blood Urea Nitrogen 8 mg/dL (7-20) Creatinine 0.6 mg/dL (0.6-1.0) Estimated GFR (Cockcroft-Gault) 94.6 Glucose Level 98 mg/dL (70-99) Calcium Level 9.1 mg/dL (8.5-10.1) Review of Systems Review of Systems No new complaints Assessment and Plan Assessmemt and Plan Problems Medical Problems: (1) Acute bronchitis Status: Acute (2) Dehydration Status: Acute (3) Hiatal hernia Status: Acute (4) Sepsis Status: Acute (5) Syncope Status: Acute Syncopal episode, etiology undetermined may have been vasovagal vs orthostasis given history of poor oral intake over the last 48 hours History of GERD chronic cough which well may be a consequence of the above seasonal allergies advanced age moderate dehydration Elevated pro BNP Plan Continue current treatment until seen by pulmonary but I think she could probably go home later today. We'll put discharge orders and tentatively for later today See discharge summary Comment Review of Relevant I have reviewed the following items jeny (where applicable) has been applied. Labs Laboratory Tests Test 03/08/19 04:40 03/09/19 03:15 White Blood Count 4.3 x10^3/uL (4.0-11.0) 4.5 x10^3/uL (4.0-11.0) Red Blood Count 3.61 x10^6/uL (3.50-5.40) 3.94 x10^6/uL (3.50-5.40) Hemoglobin 11.0 g/dL (12.0-15.5) 11.6 g/dL (12.0-15.5) Hematocrit 31.7 % (36.0-47.0) 34.7 % (36.0-47.0) Mean Corpuscular Volume 88 fL (79-100) 88 fL (79-100) Mean Corpuscular Hemoglobin 30 pg (25-35) 29 pg (25-35) Mean Corpuscular Hemoglobin Concent 35 g/dL (31-37) 33 g/dL (31-37) Red Cell Distribution Width 14.4 % (11.5-14.5) 13.9 % (11.5-14.5) Platelet Count 154 x10^3/uL (140-400) 183 x10^3/uL (140-400) Neutrophils (%) (Auto) 57 % (31-73) 58 % (31-73) Lymphocytes (%) (Auto) 26 % (24-48) 28 % (24-48) Monocytes (%) (Auto) 12 % (0-9) 10 % (0-9) Eosinophils (%) (Auto) 4 % (0-3) 4 % (0-3) Basophils (%) (Auto) 0 % (0-3) 1 % (0-3) Neutrophils # (Auto) 2.5 x10^3uL (1.8-7.7) 2.6 x10^3uL (1.8-7.7) Lymphocytes # (Auto) 1.1 x10^3/uL (1.0-4.8) 1.2 x10^3/uL (1.0-4.8) Monocytes # (Auto) 0.5 x10^3/uL (0.0-1.1) 0.5 x10^3/uL (0.0-1.1) Eosinophils # (Auto) 0.2 x10^3/uL (0.0-0.7) 0.2 x10^3/uL (0.0-0.7) Basophils # (Auto) 0.0 x10^3/uL (0.0-0.2) 0.0 x10^3/uL (0.0-0.2) Sodium Level 143 mmol/L (136-145) 142 mmol/L (136-145) Potassium Level 3.4 mmol/L (3.5-5.1) 3.6 mmol/L (3.5-5.1) Chloride Level 108 mmol/L (98-107) 106 mmol/L (98-107) Carbon Dioxide Level 26 mmol/L (21-32) 26 mmol/L (21-32) Anion Gap 9 (6-14) 10 (6-14) Blood Urea Nitrogen 10 mg/dL (7-20) 8 mg/dL (7-20) Creatinine 0.6 mg/dL (0.6-1.0) 0.6 mg/dL (0.6-1.0) Estimated GFR (Cockcroft-Gault) 94.6 94.6 Glucose Level 97 mg/dL (70-99) 98 mg/dL (70-99) Calcium Level 8.6 mg/dL (8.5-10.1) 9.1 mg/dL (8.5-10.1) Laboratory Tests Test 03/09/19 03:15 White Blood Count 4.5 x10^3/uL (4.0-11.0) Red Blood Count 3.94 x10^6/uL (3.50-5.40) Hemoglobin 11.6 g/dL (12.0-15.5) Hematocrit 34.7 % (36.0-47.0) Mean Corpuscular Volume 88 fL (79-100) Mean Corpuscular Hemoglobin 29 pg (25-35) Mean Corpuscular Hemoglobin Concent 33 g/dL (31-37) Red Cell Distribution Width 13.9 % (11.5-14.5) Platelet Count 183 x10^3/uL (140-400) Neutrophils (%) (Auto) 58 % (31-73) Lymphocytes (%) (Auto) 28 % (24-48) Monocytes (%) (Auto) 10 % (0-9) Eosinophils (%) (Auto) 4 % (0-3) Basophils (%) (Auto) 1 % (0-3) Neutrophils # (Auto) 2.6 x10^3uL (1.8-7.7) Lymphocytes # (Auto) 1.2 x10^3/uL (1.0-4.8) Monocytes # (Auto) 0.5 x10^3/uL (0.0-1.1) Eosinophils # (Auto) 0.2 x10^3/uL (0.0-0.7) Basophils # (Auto) 0.0 x10^3/uL (0.0-0.2) Sodium Level 142 mmol/L (136-145) Potassium Level 3.6 mmol/L (3.5-5.1) Chloride Level 106 mmol/L (98-107) Carbon Dioxide Level 26 mmol/L (21-32) Anion Gap 10 (6-14) Blood Urea Nitrogen 8 mg/dL (7-20) Creatinine 0.6 mg/dL (0.6-1.0) Estimated GFR (Cockcroft-Gault) 94.6 Glucose Level 98 mg/dL (70-99) Calcium Level 9.1 mg/dL (8.5-10.1) Microbiology 03/06/19 Blood Culture - Preliminary, Resulted NO GROWTH AFTER 2 DAYS Medications Current Medications Sodium Chloride 1,000 ml @ 1,000 mls/hr Q1H IV Last administered on 03/06/19at 11:21; Start 03/06/19 at 11:26; Stop 03/06/19 at 12:25; Status DC Albuterol/ Ipratropium (Duoneb) 3 ml 1X ONCE NEB Last administered on 03/06/19at 11:51; Start 03/06/19 at 11:30; Stop 03/06/19 at 11:31; Status DC Ceftriaxone Sodium (Rocephin) 1 gm 1X ONCE IVP Last administered on 03/06/19at 13:35; Start 03/06/19 at 13:30; Stop 03/06/19 at 13:31; Status DC Azithromycin 250 ml @ 250 mls/hr 1X ONCE IV Last administered on 03/06/19at 13:35; Start 03/06/19 at 13:30; Stop 03/06/19 at 14:29; Status DC Ondansetron HCl (Zofran) 4 mg PRN Q4HRS PRN IV NAUSEA/VOMITING; Start 03/06/19 at 14:30 Zolpidem Tartrate (Ambien) 5 mg PRN QHS PRN PO INSOMNIA Last administered on 03/08/19at 20:57; Start 03/06/19 at 14:30 Acetaminophen (Tylenol) 650 mg PRN Q4HRS PRN PO TEMP OVER 100.4F OR MILD PAIN; Start 03/06/19 at 14:30 Docusate Sodium (Colace) 100 mg PRN BID PRN PO CONSTIPATION; Start 03/06/19 at 14:30 Albuterol Sulfate (Ventolin Neb Soln) 2.5 mg PRN Q4HRS PRN NEB SHORTNESS OF BREATH; Start 03/06/19 at 14:30 Guaifenesin (Robitussin) 200 mg PRN Q4HRS PRN PO COUGH Last administered on 03/06/19at 18:52; Start 03/06/19 at 14:30 Lorazepam (Ativan) 0.5 mg PRN Q4HRS PRN PO ANXIETY / AGITATION; Start 03/06/19 at 14:30 Sodium Chloride 1,000 ml @ 125 mls/hr Q8H IV Last administered on 03/07/19at 05 :51; Start 03/06/19 at 14:24; Stop 03/07/19 at 14:23; Status DC Ceftriaxone Sodium (Rocephin) 1 gm Q24H IVP Last administered on 03/08/19at 12:05; Start 03/07/19 at 13:00 Albuterol/ Ipratropium (Duoneb) 3 ml RTQID NEB Last administered on 03/09/19at 09:03; Start 03/07/19 at 12:00 Azithromycin (Zithromax) 250 mg DAILY PO ; Start 03/07/19 at 13:00; Status Cancel Azithromycin 500 mg/Sodium Chloride 250 ml @ 250 mls/hr DAILY IV Last administered on 03/09/19at 09:50; Start 03/07/19 at 13:00 Lactobacillus Rhamnosus (Culturelle) 1 cap BID PO Last administered on 03/09/19at 07:53; Start 03/07/19 at 21:00 Pantoprazole Sodium (Protonix) 40 mg 1X ONCE PO Last administered on 03/07/19at 20:03; Start 03/07/19 at 19:45; Stop 03/07/19 at 19:46; Status DC Pantoprazole Sodium (Protonix) 40 mg DAILYAC PO Last administered on 03/09/19at 07:53; Start 03/08/19 at 07:30 Levothyroxine Sodium (Synthroid) 88 mcg DAILY06 PO Last administered on 03/09/19at 06:00; Start 03/08/19 at 13:00 Zolpidem Tartrate (Ambien) 5 mg HS PRN PO INSOMNIA; Start 03/08/19 at 13:00; Status UNV Lisinopril (Prinivil) 20 mg DAILY PO Last administered on 03/09/19at 07:53; Start 03/08/19 at 14:00 Atorvastatin Calcium (Lipitor) 10 mg QHS PO Last administered on 03/08/19at 20:56; Start 03/08/19 at 21:00 Amlodipine Besylate (Norvasc) 10 mg DAILY PO Last administered on 03/09/19 07:52; Start 03/08/19 at 13:30 Hydrochlorothiazide (Hydrodiuril) 25 mg DAILY PO Last administered on 03/09/19at 07:53; Start 03/08/19 at 14:00 Active Scripts Active Reported Lisinopril-Hctz 20-25 Mg Tab (Lisinopril/Hydrochlorothiazide) 1 Each Tablet 1 Tab PO DAILY Ambien (Zolpidem Tartrate) 5 Mg Tablet 5 Mg PO HS PRN Pravastatin Sodium 40 Mg Tablet 1 Tab PO DAILY Levothyroxine Sodium 88 Mcg Tablet 1 Tab PO DAILY Vitals/I & O Vital Sign - Last 24 Hours 03/08/19 03/08/19 03/08/19 03/08/19 11:00 12:09 13:59 14:00 Temp 98.3 98.3 Pulse 59 59 59 Resp 18 B/P (MAP) 183/67 (105) 183/67 183/67 Pulse Ox 99 O2 Delivery Room Air Room Air 03/08/19 03/08/19 03/08/19 03/08/19 15:00 16:38 19:13 20:00 Temp 97.9 97.6 97.9 97.6 Pulse 86 81 Resp 18 18 B/P (MAP) 129/64 (85) 97/74 (82) Pulse Ox 98 98 O2 Delivery Room Air Room Air Room Air Room Air 03/08/19 03/08/19 03/09/19 03/09/19 20:13 23:27 03:49 07:00 Temp 97.3 97.5 97.7 97.3 97.5 97.7 Pulse 86 81 92 Resp 16 18 18 B/P (MAP) 135/51 (79) 124/68 (86) 148/83 (104) Pulse Ox 96 96 93 96 O2 Delivery Room Air Room Air Room Air Room Air 03/09/19 03/09/19 03/09/19 07:52 07:53 09:04 B/P (MAP) 148/73 148/73 Pulse Ox 96 O2 Delivery Room Air Intake and Output 03/08/19 03/08/19 03/09/19 15:00 23:00 07:00 Intake Total 350 ml 350 ml 500 ml Balance 350 ml 350 ml 500 ml COLEEN OCHOAL K III DO Mar 09, 2019 10:00
--- NOTE | 2019-03-09 10:05 | SNU/HH DC ---
DISCHARGE WITH HOME HEALTH DISCHARGE INFORMATION: Final Diagnosis: Problems Medical Problems: (1) Acute bronchitis Status: Acute (2) Dehydration Status: Acute (3) Hiatal hernia Status: Acute (4) Sepsis Status: Acute (5) Syncope Status: Acute Condition on Discharge: Stable CODE STATUS: Code Status: Full HOME HEALTH: Face to Face: I certify this patient is under my care and that I, or a nurse practitioner or physician's assistant program director working with me, had a face to face encounter that meets the physician face to face encounter requirements with this patient on []. Medical Complications: Other (bronchitis and debility) RN For Eval/Treatment: Yes Physical Therapy For: Evalulation/Treatment Occupational Therapy For: Evaluation/Treatment Home Health Aide For: Self-care [employer] EXECUTIVE DIRECTOR For: Community Resources Pt Meets Homebound Status: Unsteady balance w/ amb, POST DISCHARGE ORDERS: DIET AFTER DISCHARGE: Cardiac CERTIFICATION STATEMENT: Certification Statement: Certification Statement: Based on the above finding, I certify that this patient is confined to the home and needs intermittent group home care, physical therapy and/or speech therapy, or continues to need occupational therapy.~ This patient is under my care, and I have initiated the establishment of the plan of care.~ This patient will be followed by myself or a community physician who will periodically review the plan of care. Home Meds Reported Medications Lisinopril/Hydrochlorothiazide (LISINOPRIL-HCTZ 20-25 MG TAB) 1 Each Tablet, 1 TAB PO DAILY for HTN, #30 TAB 5 Refills 03/07/19 Zolpidem Tartrate (AMBIEN) 5 Mg Tablet, 5 MG PO HS PRN for INSOMNIA, TAB 0 Refills 03/07/19 Pravastatin Sodium (PRAVASTATIN SODIUM) 40 Mg Tablet, 1 TAB PO DAILY for high cholesterol, #90 TAB 1 Refill 03/07/19 Levothyroxine Sodium (LEVOTHYROXINE SODIUM) 88 Mcg Tablet, 1 TAB PO DAILY for hypothyroid, #30 TAB 5 Refills 03/07/19 POOL OCHOA III, DO Mar 09, 2019 10:05
--- NOTE | 2019-03-09 11:13 | NUR ---
SW following for discharge planning. Discussed with RN, pt ready to discharge home today with home health. SW met with pt, pt does not have a preference but has many questions so would like [facility]. SW notified Alejandro Matias RN who met with pt, pt has been accepted with [facility] . RN notified. No further SW needs.
[2019-03-09 11:22] VITALS: BP 126/60
[2019-03-09] MEDS: cefTRIAXone IV Push 1 GM VIAL. IVP SCH (13:00)
--- NOTE | 2019-03-09 13:54 | NUR ---
Discharge Note: ERROL UNDERWOOD [address] [place] [address] Discharge instructions and discharge home medications reviewed with Patient and a copy given. All questions have been answered and understanding verbalized. The following instructions and handouts were given: Home Health, dehydration, and prescritpions Discontinued lines and drains: 1 x PIV tip intact Patient discharged to to home with and home health services
--- NOTE | 2019-03-09 17:45 | PDOC ---
PROGRESS NOTES Subjective Subjective Patient seen and examined Objective Objective Vital Signs Date Time Temp Pulse Resp B/P (MAP) Pulse Ox O2 Delivery O2 Flow Rate FiO2 03/09/19 11:55 96 Room Air 03/09/19 11:22 98.2 89 16 126/60 (82) 98.2 Intake and Output 03/09/19 07:00 Intake Total 1200 ml Balance 1200 ml Intake Oral 1200 ml # Voids 5 Physical Exam Abdomen: Normal bowel sounds Heart: Regular rate General: No acute distress Lungs: Other (minimally decreased breath sounds) Assessment Assessment Problems Medical Problems: (1) Acute bronchitis Status: Acute (2) Dehydration Status: Acute (3) Hiatal hernia Status: Acute (4) Sepsis Status: Acute (5) Syncope Status: Acute 1. Syncopal episode. Patient's rhythm remains stable. Blood pressure also improved. Echocardiogram with normal LV systolic function. Agree with present treatment. Okay for home from a cardiac viewpoint. 2. Possible dehydration. Resolved. 3. Initial question concerning possible sepsis. As per the primary service. Comment Review of Relevant I have reviewed the following items jeny (where applicable) has been applied. Labs Laboratory Tests Test 03/08/19 04:40 03/09/19 03:15 White Blood Count 4.3 x10^3/uL (4.0-11.0) 4.5 x10^3/uL (4.0-11.0) Red Blood Count 3.61 x10^6/uL (3.50-5.40) 3.94 x10^6/uL (3.50-5.40) Hemoglobin 11.0 g/dL (12.0-15.5) 11.6 g/dL (12.0-15.5) Hematocrit 31.7 % (36.0-47.0) 34.7 % (36.0-47.0) Mean Corpuscular Volume 88 fL (79-100) 88 fL (79-100) Mean Corpuscular Hemoglobin 30 pg (25-35) 29 pg (25-35) Mean Corpuscular Hemoglobin Concent 35 g/dL (31-37) 33 g/dL (31-37) Red Cell Distribution Width 14.4 % (11.5-14.5) 13.9 % (11.5-14.5) Platelet Count 154 x10^3/uL (140-400) 183 x10^3/uL (140-400) Neutrophils (%) (Auto) 57 % (31-73) 58 % (31-73) Lymphocytes (%) (Auto) 26 % (24-48) 28 % (24-48) Monocytes (%) (Auto) 12 % (0-9) 10 % (0-9) Eosinophils (%) (Auto) 4 % (0-3) 4 % (0-3) Basophils (%) (Auto) 0 % (0-3) 1 % (0-3) Neutrophils # (Auto) 2.5 x10^3uL (1.8-7.7) 2.6 x10^3uL (1.8-7.7) Lymphocytes # (Auto) 1.1 x10^3/uL (1.0-4.8) 1.2 x10^3/uL (1.0-4.8) Monocytes # (Auto) 0.5 x10^3/uL (0.0-1.1) 0.5 x10^3/uL (0.0-1.1) Eosinophils # (Auto) 0.2 x10^3/uL (0.0-0.7) 0.2 x10^3/uL (0.0-0.7) Basophils # (Auto) 0.0 x10^3/uL (0.0-0.2) 0.0 x10^3/uL (0.0-0.2) Sodium Level 143 mmol/L (136-145) 142 mmol/L (136-145) Potassium Level 3.4 mmol/L (3.5-5.1) 3.6 mmol/L (3.5-5.1) Chloride Level 108 mmol/L (98-107) 106 mmol/L (98-107) Carbon Dioxide Level 26 mmol/L (21-32) 26 mmol/L (21-32) Anion Gap 9 (6-14) 10 (6-14) Blood Urea Nitrogen 10 mg/dL (7-20) 8 mg/dL (7-20) Creatinine 0.6 mg/dL (0.6-1.0) 0.6 mg/dL (0.6-1.0) Estimated GFR (Cockcroft-Gault) 94.6 94.6 Glucose Level 97 mg/dL (70-99) 98 mg/dL (70-99) Calcium Level 8.6 mg/dL (8.5-10.1) 9.1 mg/dL (8.5-10.1) Laboratory Tests Test 03/09/19 03:15 White Blood Count 4.5 x10^3/uL (4.0-11.0) Red Blood Count 3.94 x10^6/uL (3.50-5.40) Hemoglobin 11.6 g/dL (12.0-15.5) Hematocrit 34.7 % (36.0-47.0) Mean Corpuscular Volume 88 fL (79-100) Mean Corpuscular Hemoglobin 29 pg (25-35) Mean Corpuscular Hemoglobin Concent 33 g/dL (31-37) Red Cell Distribution Width 13.9 % (11.5-14.5) Platelet Count 183 x10^3/uL (140-400) Neutrophils (%) (Auto) 58 % (31-73) Lymphocytes (%) (Auto) 28 % (24-48) Monocytes (%) (Auto) 10 % (0-9) Eosinophils (%) (Auto) 4 % (0-3) Basophils (%) (Auto) 1 % (0-3) Neutrophils # (Auto) 2.6 x10^3uL (1.8-7.7) Lymphocytes # (Auto) 1.2 x10^3/uL (1.0-4.8) Monocytes # (Auto) 0.5 x10^3/uL (0.0-1.1) Eosinophils # (Auto) 0.2 x10^3/uL (0.0-0.7) Basophils # (Auto) 0.0 x10^3/uL (0.0-0.2) Sodium Level 142 mmol/L (136-145) Potassium Level 3.6 mmol/L (3.5-5.1) Chloride Level 106 mmol/L (98-107) Carbon Dioxide Level 26 mmol/L (21-32) Anion Gap 10 (6-14) Blood Urea Nitrogen 8 mg/dL (7-20) Creatinine 0.6 mg/dL (0.6-1.0) Estimated GFR (Cockcroft-Gault) 94.6 Glucose Level 98 mg/dL (70-99) Calcium Level 9.1 mg/dL (8.5-10.1) Microbiology 03/06/19 Blood Culture - Preliminary, Resulted NO GROWTH AFTER 3 DAYS Medications Current Medications Sodium Chloride 1,000 ml @ 1,000 mls/hr Q1H IV Last administered on 03/06/19at 11:21; Start 03/06/19 at 11:26; Stop 03/06/19 at 12:25; Status DC Albuterol/ Ipratropium (Duoneb) 3 ml 1X ONCE NEB Last administered on 03/06/19at 11:51; Start 03/06/19 at 11:30; Stop 03/06/19 at 11:31; Status DC Ceftriaxone Sodium (Rocephin) 1 gm 1X ONCE IVP Last administered on 03/06/19at 13:35; Start 03/06/19 at 13:30; Stop 03/06/19 at 13:31; Status DC Azithromycin 250 ml @ 250 mls/hr 1X ONCE IV Last administered on 03/06/19at 13:35; Start 03/06/19 at 13:30; Stop 03/06/19 at 14:29; Status DC Ondansetron HCl (Zofran) 4 mg PRN Q4HRS PRN IV NAUSEA/VOMITING; Start 03/06/19 at 14:30 Zolpidem Tartrate (Ambien) 5 mg PRN QHS PRN PO INSOMNIA Last administered on 03/08/19at 20:57; Start 03/06/19 at 14:30 Acetaminophen (Tylenol) 650 mg PRN Q4HRS PRN PO TEMP OVER 100.4F OR MILD PAIN; Start 03/06/19 at 14:30 Docusate Sodium (Colace) 100 mg PRN BID PRN PO CONSTIPATION; Start 03/06/19 at 14:30 Albuterol Sulfate (Ventolin Neb Soln) 2.5 mg PRN Q4HRS PRN NEB SHORTNESS OF BREATH; Start 03/06/19 at 14:30 Guaifenesin (Robitussin) 200 mg PRN Q4HRS PRN PO COUGH Last administered on 03/06/19at 18:52; Start 03/06/19 at 14:30 Lorazepam (Ativan) 0.5 mg PRN Q4HRS PRN PO ANXIETY / AGITATION; Start 03/06/19 at 14:30 Sodium Chloride 1,000 ml @ 125 mls/hr Q8H IV Last administered on 03/07/19at 05:51; Start 03/06/19 at 14:24; Stop 03/07/19 at 14:23; Status DC Ceftriaxone Sodium (Rocephin) 1 gm Q24H IVP Last administered on 03/08/19at 12:05; Start 03/07/19 at 13:00 Albuterol/ Ipratropium (Duoneb) 3 ml RTQID NEB Last administered on 03/09/19at 11:52; Start 03/07/19 at 12:00 Azithromycin (Zithromax) 250 mg DAILY PO ; Start 03/07/19 at 13:00; Status Cancel Azithromycin 500 mg/Sodium Chloride 250 ml @ 250 mls/hr DAILY IV Last administered on 03/09/19at 09:50; Start 03/07/19 at 13:00 Lactobacillus Rhamnosus (Culturelle) 1 cap BID PO Last administered on 03/09/19at 07:53; Start 03/07/19 at 21:00 Pantoprazole Sodium (Protonix) 40 mg 1X ONCE PO Last administered on 03/07/19at 20:03; Start 03/07/19 at 19:45; Stop 03/07/19 at 19:46; Status DC Pantoprazole Sodium (Protonix) 40 mg DAILYAC PO Last administered on 03/09/19at 07:53; Start 03/08/19 at 07:30 Levothyroxine Sodium (Synthroid) 88 mcg DAILY06 PO Last administered on 03/09/19at 06:00; Start 03/08/19 at 13:00 Zolpidem Tartrate (Ambien) 5 mg HS PRN PO INSOMNIA; Start 03/08/19 at 13:00; Status UNV Lisinopril (Prinivil) 20 mg DAILY PO Last administered on 03/09/19 07:53; Start 03/08/19 at 14:00 Atorvastatin Calcium (Lipitor) 10 mg QHS PO Last administered on 03/08/19at 20:56; Start 03/08/19 at 21:00 Amlodipine Besylate (Norvasc) 10 mg DAILY PO Last administered on 03/09/19at 07:52; Start 03/08/19 at 13:30 Hydrochlorothiazide (Hydrodiuril) 25 mg DAILY PO Last administered on 03/09/19at 07:53; Start 03/08/19 at 14:00 Active Scripts Active Reported Lisinopril-Hctz 20-25 Mg Tab (Lisinopril/Hydrochlorothiazide) 1 Each Tablet 1 Tab PO DAILY Ambien (Zolpidem Tartrate) 5 Mg Tablet 5 Mg PO HS PRN Pravastatin Sodium 40 Mg Tablet 1 Tab PO DAILY Levothyroxine Sodium 88 Mcg Tablet 1 Tab PO DAILY Vitals/I & O Vital Sign - Last 24 Hours 03/08/19 03/08/19 03/08/19 03/08/19 19:13 20:00 20:13 23:27 Temp 97.6 97.3 97.6 97.3 Pulse 81 86 Resp 18 16 B/P (MAP) 97/74 (82) 135/51 (79) Pulse Ox 98 96 96 O2 Delivery Room Air Room Air Room Air Room Air 03/09/19 03/09/19 03/09/19 03/09/19 03:49 07:00 07:52 07:53 Temp 97.5 97.7 97.5 97.7 Pulse 81 92 Resp 18 18 B/P (MAP) 124/68 (86) 148/83 (104) 148/73 148/73 Pulse Ox 93 96 O2 Delivery Room Air Room Air 03/09/19 03/09/19 03/09/19 09:04 11:22 11:55 Temp 98.2 98.2 Pulse 89 Resp 16 B/P (MAP) 126/60 (82) Pulse Ox 96 97 96 O2 Delivery Room Air Room Air Room Air Intake and Output 03/08/19 03/08/19 03/09/19 15:00 23:00 07:00 Intake Total 350 ml 350 ml 500 ml Balance 350 ml 350 ml 500 ml SYED FELICIANO MD Mar 09, 2019 17:45
--- NOTE | 2019-03-09 19:54 | DS ---
DATE OF DISCHARGE: 03/09/2019 ADMISSION DIAGNOSES: Sepsis and syncope. DISCHARGE DIAGNOSES: Resolving sepsis, resolving syncope, suspect possible aspiration, past history of hypertension. CONSULTS: Pulmonary and Cardiology. PROCEDURES: None. HOSPITAL COURSE: The patient is a pleasant elderly female who presented with a coughing spell and shortness of breath and seem to be a little septic. Clinically, she seemed to have aspirated. We admitted her. We gave her IV antibiotics. The above consults were obtained. Over the past 72 hours, she seems to have returned to her baseline. I saw her and examined her this morning. She was up in the chair, requesting discharge. If okay with consultants, we are going to discharge with close outpatient followup. DISPOSITION: Home. ACTIVITY: As tolerated. DIET: Low sodium. MEDICATIONS: Please see the MRAD. We are going to continue her home meds and we gave her p.o. antibiotics. TOTAL TIME: 33 minutes. POOL [place]CHO[place] DO DR: KEMAR/rhonda JOB#: [id number] / [id number]
== END 2019-03-09 16:05 | disposition home health service (06) | DRG 871 ==
LOC: ER 11:08 → 6 SOUTH 12:50
PROVIDERS: ADMIT Internal Medicine; ATTEND Internal Medicine
DX: A41.9 Sepsis, unspecified organism (principal); J18.9 Pneumonia, unspecified organism; J98.11 Atelectasis; J47.0 Bronchiectasis with acute lower respiratory infection; E86.0 Dehydration; K44.9 Diaphragmatic hernia without obstruction or gangrene; E78.00 Pure hypercholesterolemia, unspecified; E78.5 Hyperlipidemia, unspecified; I10 Essential (primary) hypertension; J20.9 Acute bronchitis, unspecified; K21.9 Gastro-esophageal reflux disease without esophagitis; Z82.49 Family history of ischemic heart disease and other diseases of the circulatory system; Z86.73 Personal history of transient ischemic attack (TIA), and cerebral infarction without residual deficits; Z79.899 Other long term (current) drug therapy; Z88.2 Allergy status to sulfonamides
CPT/HCPCS: 36415; 70450; 71045; 71046; 71250; 80048; 80053; 81001; 82550; 83605; 83735; 83880; 84484; 85025; 87040; 87086; 93005; 93306; 94640; 94760; 96361; 96374; G0238; J0456; J0696; J7030; J7050; J7620; 92610; 97116; 99285-25

== ENCOUNTER → 2019-11-27 | Outpatient (CLI) | payer MEDICARE ==
[~2019-11-27] MED LIST: LEVO88TA4 PO; LISI1TAB20 PO; PRAV40TA2 PO; ZOLP5TAB PO
--- NOTE | 2019-11-27 16:13 | KCIC ---
Abdominal ultrasound without comparison for abdominal pain and pelvic pain. TECHNIQUE AND FINDINGS: Real-time grayscale and color Doppler evaluation of the abdominal organs is performed. The IVC is patent. The aorta is nonaneurysmal, but notable for moderate multifocal atherosclerosis. The liver is normal in size, contour, and echogenicity, measuring 14 cm. No focal parenchymal abnormal abnormalities. No intrahepatic biliary ductal dilatation. Common bile duct measures 5 mm in diameter. The gallbladder is partially fluid distended and grossly unremarkable with no shadowing stones or sludge, and no sonographic Worley sign elicited. The pancreas is obscured by overlying bowel gas. The right kidney measures 10.5 x 4.5 x 4.8 cm and the left kidney measures 10.3 x 4.9 x 4.7 cm. There is no hydronephrosis or focal parenchymal abnormality involving either kidney. The spleen measures 7.9 cm and is normal in appearance as well. No abdominal fluid collections are seen. No abdominal masses are evident. IMPRESSION: 1. No sonographic evidence of acute cholecystitis. 2. Limited evaluation of the pancreas. Electronically signed by: Jaylen Austin MD (11/27/2019 4:10 PM) [id number]
--- NOTE | 2019-11-27 17:32 | KCIC ---
PELVIS W/TV History: Pelvic pain. Comparison: None. Technique: Grayscale and color Doppler imaging of the pelvis was performed using transabdominal and transvaginal technique. Findings: The uterus measures 6.0 x 2.0 x 3.3 cm in length. Calcifications throughout the uterus. Nonspecific fluid within the endometrial canal with slight distention. And partial thickness measures 0.15 cm. Heterogeneous appearance of the cervix. Bilateral ovaries not identified due to positioning and overlying bowel gas. No adnexal masses are seen. No free fluid. IMPRESSION: 1. Nonspecific fluid within the endometrial canal with slight distention. 2. Heterogeneous appearance of the cervix. Recommend clinical evaluation and correlation for obstructing lesion. MRI can further evaluate if clinically indicated. 3. Bilateral ovaries not identified. Electronically signed by: Elver Prasad DO (11/27/2019 5:29 PM) [id number]
== END | disposition home or self-care (01) ==
LOC: KCIC US 09:32
PROVIDERS: ATTEND Family Medicine
DX: K82.8 Other specified diseases of gallbladder (principal); I70.0 Atherosclerosis of aorta; N85.8 Other specified noninflammatory disorders of uterus
CPT/HCPCS: 76700; 76830; 76856

== ENCOUNTER → 2019-12-11 | Day surgery (SDC) | payer MEDICARE ==
[~2019-12-11] MED LIST changes: +IV RINGERS,LACTATED 1000ML 1,000 ML IV ONE; +LIDOCAINE 2% PF 5 ML VIAL. ONE; +OMEP40CA45 PO; +PROPOFOL 20 ML IV ONE
[2019-12-11 11:17] VITALS: BP 113/62
--- NOTE | 2019-12-11 11:25 | HP ---
ADMIT DATE: 12/11/2019 UPDATE HISTORY AND PHYSICAL REFERRING PHYSICIAN: Phil Singh MD HISTORY OF PRESENT ILLNESS: An 89-year-old female whose past medical history is significant for GERD, hypertension and hyperlipidemia, seen for recurrent dysphagia. She has had dilatations in the past, which have temporarily helped. She presents as having problems with solids and liquids with coughing after swallowing. Weight and appetite have been stable despite this and she is otherwise without additional complaints. PAST MEDICAL HISTORY: Hypothyroidism, hypertension, hyperlipidemia and gastroesophageal reflux disease. ALLERGIES: SULFA. MEDICATIONS: Include levothyroxine, lisinopril, hydrochlorothiazide, omeprazole, pravastatin and Ambien. FAMILY HISTORY: Significant for cerebrovascular accidents with both parents, Crohn's disease with her brother. SOCIAL HISTORY: She is a nonsmoker, nondrinker. PAST SURGICAL HISTORY: Significant for eye surgery. REVIEW OF SYSTEMS: Per records. PHYSICAL EXAMINATION: GENERAL: Reveals a well-nourished, well-developed female who is alert and cooperative, in no acute distress. VITAL SIGNS: Temperature is 97.2, pulse 117 and respirations 20. LUNGS: Clear. CARDIOVASCULAR: Reveals an S1, S2 without S3, S4 or appreciable murmur. ABDOMEN: Reveals a soft abdomen, normal bowel sounds, without appreciable hepatosplenomegaly. IMPRESSION: Dysphagia with GERD and hiatal hernia. Differential includes presbyesophagus, Schatzki's ring, malignancy, achalasia, Bowie's, esophageal dysmotility and oropharyngeal disease; therefore, recommend upper endoscopy with possible biopsy and dilatation. If this is unhelpful or not beneficial, speech pathology evaluation would be recommended. TWYLA FARMER MD DR: MYA/rhonda JOB#: [id number] / [id number]
== END ==
LOC: ENDOS 09:01
PROVIDERS: ATTEND Internal Medicine Gastroenterology
DX: R13.10 Dysphagia, unspecified (principal); K22.2 Esophageal obstruction; K31.7 Polyp of stomach and duodenum; K44.9 Diaphragmatic hernia without obstruction or gangrene; K21.9 Gastro-esophageal reflux disease without esophagitis; I10 Essential (primary) hypertension; E78.5 Hyperlipidemia, unspecified; E03.9 Hypothyroidism, unspecified; Z88.1 Allergy status to other antibiotic agents
CPT/HCPCS: 43235; 43450; J2001; J2704

== ENCOUNTER 2021-02-03 15:11 | Emergency (ER) | payer MEDICARE ==
[~2021-02-03] VITALS: Ht 160 cm; Wt 59.5 kg
[~2021-02-03 15:11] MED LIST changes: -IV RINGERS,LACTATED 1000ML 1,000 ML IV ONE; -LIDOCAINE 2% PF 5 ML VIAL. ONE; -PROPOFOL 20 ML IV ONE
--- NOTE | 2021-02-03 16:20 | PHYS DOC ---
Past Medical History Past Medical History: GERD, Hypertension, Hypothyroid Additional Past Medical Histor: THYROID DZ Past Surgical History: No Surgical History Additional Past Surgical Histo: CATARACTS BILATERAL EYES - PERSISTEN DOUBLE VISION AFTER SX Smoking Status: Never Smoker Alcohol Use: None Drug Use: None General Adult EDM: Chief Complaint: MULTIPLE COMPLAINTS HPI: HPI: 89 yo F PMH Hypothyroidism, hypertension, hyperlipidemia and gastroesophageal reflux disease, presents the ED with complaints of "shaking when I walk to try to write," for the past 6 months and dry mouth and left sided neck discomfort "I don't know if it's on the outside or the inside," for the past 2-3 weeks. Patient states she was seen by her primary care physician Dr. Moya 2 weeks ago for this and was treated with amoxicillin. Had labs drawn at that time. Sometimes uses a walker at home to ambulate. Denies any falls, head trauma or syncope. No prior history of atrial fibrillation or CVA. Patient also complains of bilateral blurry vision ever since cataract surgery. Is able to tolerate food and drink, has history of esophageal stricture. Patient reports no alcohol or drug use. Review of Systems: Review of Systems: Constitutional: Denies fever or chills. [] Eyes: Denies vision loss or red eye] HENT: Denies nasal congestion or sore throat. [] Respiratory: Denies cough or shortness of breath. [] Cardiovascular: Denies chest pain or edema. [] GI: Denies abdominal pain, nausea, vomiting, bloody stools or diarrhea. [] : Denies dysuria or hematuria Musculoskeletal: Denies back pain or joint pain. [] Integument: Denies rash or diaphoresis Neurologic: Denies headache, focal weakness or sensory changes. [] Endocrine: Denies polyuria or polydipsia. [] Lymphatic: Denies swollen glands. [] Psychiatric: Denies depression or anxiety. [] Heart Score: C/O Chest Pain: No Risk Factors: Risk Factors: DM, Current or recent (<one month) smoker, HTN, HLP, family history of CAD, obesity. Risk Scores: Score 0 - 3: 2.5% MACE over next 6 weeks - Discharge Home Score 4 - 6: 20.3% MACE over next 6 weeks - Admit for Clinical Observation Score 7 - 10: 72.7% MACE over next 6 weeks - Early Invasive Strategies Allergies: Allergies: Allergies Coded Allergies Type Severity Reaction Last Updated Verified Sulfa (Sulfonamide Antibiotics) Allergy Unknown 12/11/19 Yes Physical Exam: PE: Constitutional: Well developed, well nourished, no acute distress, non-toxic appearance. HENT: Normocephalic, atraumatic, Eyes: EOMI, conjunctiva normal, no discharge. Neck: Normal range of motion, supple, Cardiovascular: S1/2 present, irregular rhythm Lungs & Thorax: Speaking in full sentences, bilateral equal chest rise, no tachypnea or increased work of breathing Abdomen: soft, no tenderness, Skin: Warm, dry, no erythema, no rash. [] Back: No tenderness, no CVA tenderness. [] Extremities: No tenderness, no cyanosis, no lower extremity edema Neurologic: Alert and oriented X 3, normal motor function, normal sensory function, no focal deficits noted. [] Psychologic: Affect normal, judgement normal, mood normal. [] Current Patient Data: Vital Signs: Vital Signs Date Time Temp Pulse Resp B/P (MAP) Pulse Ox O2 Delivery O2 Flow Rate FiO2 02/03/21 15:28 97.8 111 22 153/83 (106) 99 Room Air 97.8 EKG: EKG: Irregular regular rhythm with no P waves, A. fib at 102 bpm, no axis deviation, QTC prolonged 489, T wave inversion lead III, low voltage EKG Radiology/Procedures: Radiology/Procedures: IMAGING REPORT Signed PATIENT: ERROL UNDERWOODACCOUNT: [id number] : 1930 LOCATION: ER AGE: 89 SEX: F EXAM STATUS: REG ER ORD. PHYSICIAN: MARY SWANOSN DO REASON: tremors PROCEDURE: CT ANGIOGRAPHY HEAD AND NECK EXAM: CT Head without IV contrast CLINICAL HISTORY: tremors COMPARISON: 03/06/2019 TECHNIQUE: Pre contrast CT scan of the head. CT angiogram of the head and neck following the administration of IV contrast. Multiplanar reconstructed images were obtained including 3D reconstructed images performed on an independent work station. Stenosis if present in the carotid arteries were measured using NASCET criteria. PQRS compliance statement - One or more of the following individualized dose reduction techniques were utilized for this study: 1. Automated exposure control 2. Adjustment of the mA and/or kV according to patient size 3. Use of iterative reconstruction technique FINDINGS: There is no evidence of hemorrhage, mass or extra-axial fluid collection. The ventricles, basilar cisterns and cortical sulci are normal for the patients stated age. Dawson-white differentiation is maintained with no evidence of edema. Subcortical, periventricular as well as deep white matter hypoattenuation likely changes of chronic small vessel disease. There is no mass effect or shift of the intracranial structures. The calvarium demonstrates no evidence of fracture or focal lesion. There is normal aeration of the visualized paranasal sinuses and mastoid air cells. Atherosclerotic calcifications of the intracranial internal carotid and vertebral arteries is seen. CTA of the intracranial circulation reveals normal appearing distal internal carotid arteries including the distal cervical, petrous, cavernous and supraclinoid portions. The anterior cerebral arteries are well visualized and without evidence of stenosis or occlusion. The middle cerebral arteries are well visualized and without evidence of stenosis or occlusion. The posterior cerebral arteries are well visualized and without evidence of stenosis or occlusion. The vertebral basilar system is normal with no evidence of stenosis or occlusion. In the neck, the origins of the great vessels are unremarkable. The common carotid arteries, bilaterally are normal with no evidence of significant stenosis or occlusion. The internal carotid arteries are normal bilaterally with no evidence of stenosis. The vertebral arteries in the neck are well visualized bilaterally and unremarkable. TMJ DJD. Atlantodental degenerative changes are seen. Mild C5-6 disc height loss. Moderate C6-7 disc height loss. IMPRESSION: 1. No evidence for acute intracranial process. 2. No evidence for high-grade stenosis or occlusion of the carotid or vertebral arteries or intracranial cerebral arteries. Electronically signed by: Ascencion Mooney MD (02/03/2021 5:50 PM) [facility] DICTATED and SIGNED BY: ASCENCION MOONEY MD DATE: 02/03/21 [id number] Course & Med Decision Making: Course & Med Decision Making Pertinent Labs and Imaging studies reviewed. (See chart for details) Patient presents the ED with multiple medical complaints that have been chronic in nature. Blurred vision is in both eyes, constant since cataract surgery. Shakiness/tremors are not visible on exam, patient with no ataxic gait. CT imag ing unremarkable for any infectious neck process or mass. Urinalysis with questionable contamination will treat with fosfomycin in ED. Not suspect patient symptoms are related to atrial fibrillation-have patient follow-up with cardiology outpatient. Will discharge home with strict ED return precautions were given for severe headache, neurologic deficits, speech changes, facial d yanely, difficulties ambulating, chest pain, dyspnea or syncope. Encouraged urgent outpatient follow-up with PMD for TSH testing, ophthalmology consider neurology for MRI of the brain for tremor evaluation.Cardiology referral for afib. Life- threatening processes were considered but are low suspicion at this time, given history, physical exam and ED workup. Pt was educated on all prescription medications and adverse effects. All patient's questions were answered and pt was stable at time of discharge. Life/limb-threatening differential includes but is not limited to, venkatesh's angina, peritonsillar abscess, retropharyngeal abscess, epiglottitis, bacterial tracheitis, uvulitis, sepsis, mastoiditis, traumatic injury, carotid/vertebral dissection, intracranial aneurysms or neurologic process. I spoken with the patient and her caregivers. I explained the patient's condition, diagnoses and treatment plan based on the information available to me at this time. I have answered the patient and her caregiver's questions and addressed any concerns. The patient and her caregivers have a good understanding of patient's diagnosis, condition and treatment plan as can be expected at this point. Vital signs have been stable. Patient's condition is stable and appropriate for discharge from the emergency department. Patient will pursue further outpatient evaluation with primary care physician or other designated or consulting physician as outlined in the discharge instructions. The patient and/or caregivers are agreeable to this plan of care and follow-up instructions have been explained in detail. The patient and/or caregivers have received these instructions in written form and have expressed an understanding of the discharge instructions. The patient and/or caregivers are aware that any significant change of condition or worsening of symptoms should prompt immediate return to this or the closest emergency department or call to 911. Zach Disclaimer: Zach Disclaimer: This electronic medical record was generated, in whole or in part, using a voice recognition dictation system. Departure Departure Impression: Primary Impression: Neck pain on left side Additional Impressions: Shakiness Blurred vision Atrial fibrillation by electrocardiogram Disposition: HOME / SELF CARE / HOMELESS Condition: STABLE Referrals: JONO GRACE MD (PCP) within 3-5 days for TSH testing, consider MRI brain Patient Instructions: Eye - Blurred Vision, Tremor Additional Instructions: FOLLOW UP WITH CARDIOLOGY: For atrial fibrillation evaluation [facility] Address: [address] [place] [address] FOLLOW UP WITH OPTHALMOLOGY: For management of chronic blurred vision [facility] [place] Address: [address] [place] [address] FOLLOW UP WITH NEUROLOGY: For shakiness, consider MRI [facility] Address: [address], [facility] [address] [place] [address] EMERGENCY DEPARTMENT GENERAL DISCHARGE INSTRUCTIONS Thank you for coming to [facility] Emergency Department (ED) today and trusting us with you care. We trust that you had a positive experience in our Emergency Department. If you wish to speak to the department management, you may call the Director at [phone]. YOUR FOLLOW UP INSTRUCTIONS ARE FOLLOWS: 1. Do you have a private Doctor? If you do not have a private doctor, please ask for a resource list of physicians or clinics that may be able to assist you with follow up care. 2. The Emergency Physicain has interpreted your x-rays. The X-Ray specialist will also review them. If there is a change in the findings, you will be notified in 48 hours when at all possible. 3. A lab test or culture has been done, your results will be reviewed and you will be notified if you need a change in treatment. ADDITIONAL INSTRUCTIONS AND INFORMATION: 1. Your care today has been supervised by a physician who is specially trained in emergency care. Many problems require more than one evaluation for a complete diagnosis and treatment. We recommend that you schedule your follow up appointment as recommended to ensure complete treatment of you illness or injury. If you are unable to obtain follow up care and continue to have a problem, or if your condition worsens, we recommend that you return to the ED. 2. We are not able to safely determine your condition over the phone nor are we able to give sound medical advice over the phone. For these safety reasons, if you call for medical advice we will ask you to come to the ED for further evaluation. 3. If you have any questions regarding these discharge instructions please call the ED at [phone]. SAFETY INFORMATION: In the interest of safety, wellness, and injury prevention; we encourage you to wear your sealbelt, if you smoke; quite smoking, and we encourage family to use a protective helmet for bicycling and other sporting events that present an increased risk for head injury. IF YOUR SYMPTOMS WORSEN OR NEW SYMPTOMS DEVELOP, OR YOU HAVE CONCERNS ABOUT YOUR CONDITION; OR IF YOUR CONDITION WORSENS WHILE YOU ARE WAITING FOR YOUR FOLLOW UP APPOINTMENT; EITHER CONTACT YOUR PRIMARY CARE DOCTOR, THE PHYSICIAN WHOSE NAME AND NUMBER YOU WERE GIVEN, OR RETURN TO THE ED IMMEDIATELY. [facility] DO Feb 03, 2021 16:20
[2021-02-03 16:45] LABS: BASO # 0.1 x10^3/uL (0.0-0.2); BASO % 1 % (0-3); EOS # 0.1 x10^3/uL (0.0-0.7); EOS % 1 % (0-3); HEMATOCRIT 44.5 % (36.0-47.0); LYMPH # 1.3 x10^3/uL (1.0-4.8); LYMPH % 19 % (24-48); MEAN CORPUSCULAR HEMOGLOBIN 30 pg (25-35); MEAN CORPUSCULAR HGB CONC 34 g/dL (31-37); MEAN CORPUSCULAR VOLUME 89 fL (79-100); MONO # 0.6 x10^3/uL (0.0-1.1); MONO % 9 % (0-9); NEUT # 4.8 x10^3/uL (1.8-7.7); NEUT % 71 % (31-73); PLATELET COUNT 189 x10^3/uL (140-400); RED BLOOD COUNT 5.01 x10^6/uL (3.50-5.40); RED CELL DISTRIBUTION WIDTH 15.1 % (11.5-14.5); WHITE BLOOD COUNT 6.8 x10^3/uL (4.0-11.0)
[2021-02-03] MEDS ORDERED: IOHEXOL 300 MG/ML 100ML VIAL. IV ONE (16:45)
[2021-02-03 16:50] LABS: BILIRUBIN,URINE NEGATIVE (NEG); CLARITY,URINE CLEAR; COLOR,URINE YELLOW; NITRITE,URINE NEGATIVE (NEG); PH,URINE 6.5 (<5.0-8.0); PROTEIN,URINE NEGATIVE (NEG-TRACE)
[2021-02-03 16:54] LABS: CALCIUM 9.6 mg/dL (8.5-10.1); CREATININE 0.8 mg/dL (0.6-1.0); GFR 67.5; POTASSIUM 3.9 mmol/L (3.5-5.1)
[2021-02-03 16:57] LABS: BARBITURATES NEG (NEG); BENZODIAZEPINES NEG (NEG); CANNABINOIDS NEG (NEG); COCAINE NEG (NEG); METHADONE NEG (NEG); OPIATES NEG (NEG); PHENCYCLIDINE NEG (NEG)
[2021-02-03 16:58] LABS: AMPHETAMINE/METHAMPHETAMINE NEG (NEG)
[2021-02-03] MEDS ORDERED: CONTRAST GIVEN. MC PRN ×2 (17:00→17:30)
--- NOTE | 2021-02-03 17:06 | EKG ---
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
[2021-02-03 17:10] LABS: ALBUMIN 4.5 g/dL (3.4-5.0); ALBUMIN/GLOBULIN RATIO 1.5 (1.0-1.7); TOTAL BILIRUBIN 0.5 mg/dL (0.2-1.0); TOTAL PROTEIN 7.5 g/dL (6.4-8.2)
[2021-02-03] MEDS ORDERED: IOHEXOL 350 MG/ML 100 ML VIAL. IV ONE (17:15)
[2021-02-03 17:16] LABS: BACTERIA,URINE FEW /HPF (0-FEW)
--- NOTE | 2021-02-03 17:20 | RAD ---
EXAM: Chest, single view. HISTORY: Infection. COMPARISON: 03/07/2019 FINDINGS: A frontal view of the chest is obtained. There is no infiltrate, pleural effusion or pneumo thorax. The heart is normal in size. There is a large hiatal hernia. IMPRESSION: No acute pulmonary finding. Electronically signed by: Iveth Lopez MD (02/03/2021 5:18 PM) [id number]
--- NOTE | 2021-02-03 17:53 | RAD ---
EXAM: CT Head without IV contrast CLINICAL HISTORY: tremors COMPARISON: 03/06/2019 TECHNIQUE: Pre contrast CT scan of the head. CT angiogram of the head and neck following the administ ration of IV contrast. Multiplanar reconstructed images were obtained including 3D reconstructed imag es performed on an independent work station. Stenosis if present in the carotid arteries were measure d using NASCET criteria. PQRS compliance statement - One or more of the following individualized dose reduction techniques wer e utilized for this study: 1. Automated exposure control 2. Adjustment of the mA and/or kV according to patient size 3. Use of iterative reconstruction technique FINDINGS: There is no evidence of hemorrhage, mass or extra-axial fluid collection. The ventricles, basilar cisterns and cortical sulci are normal for the patients stated age. Dawson-white differentiation is maintained with no evidence of edema. Subcortical, periventricular as w ell as deep white matter hypoattenuation likely changes of chronic small vessel disease. There is no mass effect or shift of the intracranial structures. The calvarium demonstrates no evidence of fracture or focal lesion. There is normal aeration of the visualized paranasal sinuses and mastoid air cells. Atherosclerotic calcifications of the intracranial internal carotid and vertebral arteries is seen. CTA of the intracranial circulation reveals normal appearing distal internal carotid arteries includi ng the distal cervical, petrous, cavernous and supraclinoid portions. The anterior cerebral arteries are well visualized and without evidence of stenosis or occlusion. The middle cerebral arteries are well visualized and without evidence of stenosis or occlusion. The posterior cerebral arteries are well visualized and without evidence of stenosis or occlusion. The vertebral basilar system is normal with no evidence of stenosis or occlusion. In the neck, the origins of the great vessels are unremarkable. The common carotid arteries, bilaterally are normal with no evidence of significant stenosis or occlu renita. The internal carotid arteries are normal bilaterally with no evidence of stenosis. The vertebral arteries in the neck are well visualized bilaterally and unremarkable. TMJ DJD. Atlantodental degenerative changes are seen. Mild C5-6 disc height loss. Moderate C6-7 disc height loss. IMPRESSION: 1. No evidence for acute intracranial process. 2. No evidence for high-grade stenosis or occlusion of the carotid or vertebral arteries or intracra nial cerebral arteries. Electronically signed by: Ascencion Pelaez MD (02/03/2021 5:50 PM) [email or web address]
[2021-02-03] MEDS ORDERED: FOSFOMYCIN TROMETHAMINE 3 GM PACKET PO ONE (18:30)
[2021-02-03 18:35] VITALS: BP 144/83
== END 2021-02-03 18:55 | disposition home or self-care (01) ==
LOC: ER 15:11
DX: M54.2 Cervicalgia (principal); R25.1 Tremor, unspecified; H53.8 Other visual disturbances; I48.91 Unspecified atrial fibrillation; K21.9 Gastro-esophageal reflux disease without esophagitis; I10 Essential (primary) hypertension; E03.9 Hypothyroidism, unspecified; Z88.2 Allergy status to sulfonamides
CPT/HCPCS: 36415; 70450; 70496; 70498; 71045; 80053; 80307; 81001; 83605; 83690; 83735; 84484; 85025; 87040; 87086; 93005; 99285; Q9967

== ENCOUNTER → 2021-03-01 | Outpatient (CLI) | payer MEDICARE ==
[2021-02-03 18:35] VITALS: BP 144/83
--- NOTE | 2021-03-01 16:00 | RAD ---
EXAM: Neck sonogram. HISTORY: Pain. TECHNIQUE: Sonographic imaging of the lateral left neck at the site of reported pain was performed. COMPARISON: None. FINDINGS: There is no suspicious finding within the lateral left neck at the site of reported pain. IMPRESSION: Sonographic imaging of the lateral left neck at the site of reported pain. Continued clinical follow- up of palpable abnormalities is recommended. Cross sectional imaging can be considered if there is co ntinuing concern. Electronically signed by: Iveth Lopez MD (03/01/2021 3:57 PM) [id number]
== END ==
LOC: US 15:20
PROVIDERS: ATTEND Family Medicine
DX: M54.2 Cervicalgia (principal)
CPT/HCPCS: 76536

== ENCOUNTER → 2021-09-06 | Day surgery (SDC) | payer MEDICARE ==
[~2021-09-06] VITALS: Ht 160 cm; Wt 57.7 kg
[~2021-09-06] MED LIST changes: -LISI1TAB20 PO; +LISI1TAB39 PO; -OMEP40CA45 PO; +OMEP40CA7 PO
[2021-09-06 07:53] VITALS: BP 158/73
--- NOTE | 2021-09-06 07:54 | NUR ---
PT HERE FOR EGD. NOTED TO BE IN A FIB BUT NOT IN PT HISTORY. NEW ONSET. DR LONDONO AND DR FARMER NOTIFIED. ORDERS FOR EKG. EGD CANCELLED FOR TODAY. PT TOLD GO SEE DR LESLY WILLIS TO BE TREATED. VOICED UNDERSTANDING. PT STATED SHE HAS BEEN TOLD ABOUT THIS IN PAST BUT NEVER TREATED. STABLE AT THIS TIME NO SOB NOTED. PT WILL CALL MD IMMEDIATELY AND BE SEEN. WILL RESCHEDULE EGD AFTER CLEARED MEDICALLY
--- NOTE | 2021-09-06 08:11 | EKG ---
[address] [place] [address] Test Date: 2021-09-06 Test Time: 08:07:30 Pat Name: ERROL UNDERWOOD Department: Room: Gender: F Automation Controls Engineer: : 1930 Requested By: JOYCE WEAVER Order Number: [id number] Reading MD: Measurements Intervals [place] Rate: 91 P: [place]: QRS: 54 QRSD: 60 T: 0 QT: 374 QTc: 462 Interpretive Statements IRREGULAR RHYTHM, NO P-WAVE FOUND LOW VOLTAGE T ABNORMALITY IN ANTERIOR LEADS ABNORMAL ECG RI6.02 Compared to ECG 02/03/2021 15:50:49 T-wave abnormality now present
== END | disposition home or self-care (01) ==
LOC: ENDOS 07:17
PROVIDERS: ATTEND Internal Medicine Gastroenterology
DX: R13.10 Dysphagia, unspecified (principal); Z53.8 Procedure and treatment not carried out for other reasons; I10 Essential (primary) hypertension; E78.00 Pure hypercholesterolemia, unspecified; K21.9 Gastro-esophageal reflux disease without esophagitis; M19.90 Unspecified osteoarthritis, unspecified site; E03.9 Hypothyroidism, unspecified; Z79.899 Other long term (current) drug therapy; Z98.890 Other specified postprocedural states; Z88.2 Allergy status to sulfonamides
CPT/HCPCS: 93005

== ENCOUNTER → 2021-10-26 | Outpatient (CLI) | payer MEDICARE ==
[2021-09-06 07:53] VITALS: BP 158/73
[~2021-10-26] MED LIST changes: +REGADENOSON 0.4 MG/5 ML DISP.SYRIN. IV ONE
--- NOTE | 2021-10-27 13:18 | RAD ---
MR#: [id number] Date of Study: 10/26/2021 Ordering Physician: JOSSELINE BHATIA, Referring Physician: JANETT HOUSER Tech: RT Nicole (R) (N) APPROVED REPORT Test Type: Pharmacological Stress Nurse/Tech: HARINDER GOSS Test Indications: CHEST PAIN, A-FIB Cardiac History: A-FIB, CHEST PAIN, HTN- SEE EMR Medications: SEE EMR Medical History: SEE EMR Resting ECG: A-FIB Resting Heart Rate: 76 bpm Resting Blood Pressure: 143/67mmHg Pretest Chest Pain: No chest pain Nurse/Tech Notes IRREGULAR RATE, DENIED SHORTNESS OF BREATH OR CHEST PAIN, VSS. Consent: The procedure was explained to the patient in lay terms. Informed consent was witnessed. Phu eout was entered into [employer]. History and Stress Test performed by APARNA Gomez Pharm. Details Pharmacologic stress testing was performed using 0.4mg per 5ml of regadenoson given intravenously ove r 7-10 seconds. Stress Symptoms PT C/O OF CHEST TIGHTNESS AND SOA DURING THE INITAL TESTING, SYMPTOMS RESOLVED AFTER A COUPLE OF MARCO ANTONIO MILAD. VSS. POST EXERCISE Reason for Termination: Infusion complete Max HR: 142 bpm Max Blood Pressure: 147/54mmHg Blood Pressure response to exercise: Normal blood pressure response during stress. Heart Rate response to exercise: WNL INTERPRETATION Stress EKG Conclusion: The baseline EKG shows atrial fibrillation with minimal nonspecific T wave bebeto nges. The stress EKG shows no significant changes from baseline. No EKG evidence of stress-induced ischemia. Imaging Protocol IMAGE PROTOCOL: Rest Tc-99m/stress Tc-99m 1 day Rest: Stress: Viability: Radiopharm.Tc99m RwiyofcisVa45c Sestamibi [id number] 32mCi Duration 15min. 15min. Img Date 10/26/2021 10/26/2021 Inj-Img [id number]. 70min. Rest Admin Site:IV - Left AntecubitalAdministrator:RT Nicole (Tab)(N) Stress Admin Site: IV - Left AntecubitalAdministrator: Ilir Greco, RT (R)(N) STRESS DATA End Diast. Vol.40.0mlAv. Heart Mqpo255.0bpm End Syst. Vol.1.0mlCO Index BSA0.0L/min Myocardial Mass80.0gEject. Pjsbtiud68.0% Stress Rates Pk. Fill Rate1.76EDV/secLVtime Pk. Fill 107.33msec Pk. Empty Rate4.85ESV/secLVtime Pk. Eject77.58msec 10/09 Pk. Fill1.60EDV/sec Stress Scores Regional WT0.00Summed WT0.00 Regional WM0.00Summed WM0.00 LV Perfusion The stress scans showed no significant defects. The rest scans showed no significant defects. Nuclear imaging shows no reversible ischemia or infarct. Wall Motion Left ventricular systolic function is normal with an ejection fraction of greater than 70%. LV Perf. Quant 17 Seg. SSS0.00 17 Seg. SRS0.00 17 Seg. SDS0.00 Stress Defect Extent (% LAD)0.00Rest Defect Extent (% LAD)0.00Rev. Defect Extent (% LAD)0.00 Stress Defect Extent (% LCX) 10.00Rest Defect Extent (% LCX)5.00Rev. Defect Extent (% LCX)0.00 Stress Defect Extent (% RCA)0.00Rest Defect Extent (% RCA)0.00Rev. Defect Extent (% RCA)0.00 Stress Defect Extent (% MADINA)1.70Rest Defect Extent (% MADINA)0.90Rev. Defect Extent (% MADINA)0.00 Conclusion 1. No EKG evidence of stress-induced ischemia. 2. Nuclear imaging shows no reversible ischemia or infarct. 3. Intact LV systolic function with an ejection fraction of greater than 70%. 4. Moderately low to low risk Lexiscan nuclear stress test. Signed by : Donnie Wiseman MD Electronically Approved : 10/27/2021 13:17:47
== END ==
LOC: NM 09:02
PROVIDERS: ATTEND Internal Medicine Cardiovascular Disease
DX: R07.9 Chest pain, unspecified (principal)
CPT/HCPCS: 78452; 93017; A9500; J2785